=== PATIENT | female | born 1935 | race Caucasian/White ===

== ENCOUNTER 2023-07-19 18:36 | Inpatient (IN) | payer MEDICARE, SELFPAY ==
[2023-07-19 18:37] VITALS: BP 204/75; BP 217/87; PULSE 63; PULSE 68; RESP 14; RESP 16; TEMP 36.2; O2SAT 98; BMI 21.4
--- NOTE | 2023-07-19 19:23 | EDS_ITS ---
HPI History of Present Illness Chief Complaint: Hypertension Informant: patient and family Onset/Context/Timing Onset: Yesterday Context: Sudden Onset Timing: Intermittent and Lasts (Few seconds) Quality: Sharp Location: Chest Worsened by: Nothing Relieved by: Nothing Narrative Narrative: Patient presents with chest pain and elevated blood pressure that began last night. Patient states that her blood pressure has been constantly elevated since last night but her chest pain has been intermittent. Patient states it only last for a few seconds when it comes on. Patient describes it as sharp. Patient states that shoots across her chest. Patient states she took aspirin today with no improvement. Patient also took a blood pressure pill that was 6 years old tonight because her blood pressure was high. Patient had no improvement with this. Patient denies any shortness of breath. Patient does admit to some hematuria and urinary frequency. Family is concerned that the patient has a urinary tract infection. PFSH PFSH Medical History no medical history no medical history Home Medications NK 07/19/23 [History Last Taken Unknown] Allergy/AdvReac Type Severity Reaction Status Date / Time No Known Allergies Allergy Verified 07/19/23 18:40 Surgical History (Updated 07/19/23 @ 19:[address] Vu Ardon DO) Hx of appendectomy Hx of tubal ligation Social History Smoking Status: Never smoker ROS ROS ED Constitutional Constitutional ED: Denies chills or fever(s) Eyes Eyes: Denies blurry vision or change in vision ENT ENT ED: Denies rhinorrhea or sore throat Cardiovascular Cardiovascular: Reports chest pain; Denies palpitations Respiratory/Chest Respiratory/Chest: Denies cough or dyspnea Gastrointestinal Gastrointestinal: Denies nausea or vomiting Genitourinary Genitourinary ED: Reports hematuria and urinary frequency; Denies dysuria Musculoskeletal Musculoskeletal: Reports back pain; Denies neck pain Integumentary Denies abscess or rash Neurologic Neurologic: Denies headache(s) or weakness Allergic/Immunologic Allergic/Immunologic ED: Denies mouth swelling or urticaria EXAM Physical Exam Const Vital Signs: 07/19/23 18:37 07/19/23 18:37 07/19/23 18:37 Temperature 97.1 F L Temperature Source Temporal Pulse Rate 68 63 Respiratory Rate 16 14 Respiratory Effort Normal Respiratory Pattern Normal Blood Pressure 204/75 H 217/87 H Blood Pressure Mean 118 130 Pulse Ox 98 98 Oxygen Delivery Method Room Air Room Air 07/19/23 19:27 Temperature Temperature Source Pulse Rate Respiratory Rate Respiratory Effort Respiratory Pattern Blood Pressure 215/81 H Blood Pressure Mean 125 Pulse Ox Oxygen Delivery Method Positive well nourished and well developed General Appearance ED: well developed and NAD HEENT Reports moist mucous membranes Neck supple and no JVD Resp normal respiratory effort and clear to auscultation bilaterally Cardio regular rate and regular rhythm GI non-tender and non-distended Palpation: soft Extremity normal to inspection Neuro oriented x3, CN's II-XII intact bilaterally and no sensory deficits noted Sensorium / Orientation: alert Motor Exam: strength 5/5 throughout Psych mental status grossly normal MDM MDM MDM Narrative Medical decision making narrative: Differential diagnosis includes hypertensive urgency, cardiac dysrhythmia, cardiac ischemia, urinary tract infection, pyelonephritis, electrolyte abnormality, and ureteral calculus. EKG will be obtained to assess for cardiac dysrhythmia and cardiac ischemia. CT scan of the flank will be obtained to assess for ureteral calculus and pyelonephritis. Chest x-ray will be obtained to assess for pneumonia, pneumothorax, widened mediastinum, and congestive heart failure. CBC will be obtained to assess for leukocytosis and anemia. Basic metabolic profile will be obtained to assess for electrolyte abnormality and renal function. High-sensitivity troponin will be obtained to assess for cardiac ischemia. 2-hour repeat high-sensitivity troponin will be obtained to assess for ongoing cardiac ischemia. Urinalysis will be obtained to assess for urinary tract infection and hematuria. Lab Data Attestation: I reviewed the patient's lab results. Lab results narrative: CBC was reviewed. There is a mild leukocytosis of 11.2. The remainder is within normal limits. Basic metabolic profile was reviewed. Creatinine was sli ghtly elevated at 1.52. There are no prior results available for comparison. High-sensitivity troponin was reviewed and was 112. Urinalysis was reviewed. There is a leukocyte esterase of 500 with positive nitrites. There were 25-50 white blood cells seen. There is 1+ bacteria. Labs: Laboratory Results - last 24 hr 07/19/23 19:40 WBC 11.2 H RBC 4.25 Hgb 12.7 Hct 40.6 MCV 95.5 MCH 29.9 MCHC 31.3 L RDW Std Deviation 47.4 H RDW Coeff of [place] 13.4 Plt Count 235 MPV 8.9 Immature Gran % (Auto) 0.400 Neut % (Auto) 80.6 H Lymph % (Auto) 11.9 L [place] % (Auto) 5.9 Eos % (Auto) 0.6 Baso % (Auto) 0.6 Absolute Neuts (auto) 9.0 H Absolute Lymphs (auto) 1.33 Nucleated RBC % 0 Sodium 138 Potassium 4.2 Chloride 106 Carbon Dioxide 27.0 Anion Gap 5 BUN 15 Creatinine 1.52 H Estim Creat Clear Calc 18.38 Est GFR (MDRD) Af Amer 41 L Est GFR (MDRD) Non-Af 34 L BUN/Creatinine Ratio 9.9 L Glucose 138 H Calcium 9.6 Troponin I High Sens 112 H Radiography Diagnostic Testing: Clinical Impression(s) from Imaging Studies Abdomen/Pelvis CT 07/19/23 19:30 IMPRESSION: 1. Diffuse mesenteric edema and minimal free fluid within the pelvis of uncertain etiology. No bowel obstruction and no evidence of bowel perforation. 2. Nonspecific air-fluid levels within nondilated small bowel perhaps related to an enteritis. 3. Diffuse mottled appearance of the visualized spine, pelvis, and hips as well as multiple ribs with multifocal scattered lucent/lytic lesions suggesting diffuse metastatic disease or perhaps multiple myeloma. Recommend oncologic evaluation. 4. Apparent inferior endplate pathologic fracture of L5 with approximately 50% mid vertebral body height loss and no retropulsion of the posterior cortex or involvement of the posterior elements/pedicles. 5. Poorly visualized gallbladder, either partially decompressed or perhaps surgically absent with possible fluid extending from the gallbladder fossa along the inferior margin of the liver. Evaluation can be clarified with ultrasound and is limited without the use of intravenous contrast on the current exam. Electronically Signed: Shawn Wilson DO at 20:33 EST , Chest X-Ray 07/19/23 20:00 IMPRESSION: 1. Minimal bibasilar pulmonary opacities may be scarring or atelectasis rather than pneumonia. 2. Mild cardiomegaly. Electronically Signed: Shawn Wilson DO at 20:27 EST , CT scan of the abdomen and pelvis was obtained. There are nonspecific air-fluid levels with nondilated small bowel. There is diffuse mesenteric edema and minimal free fluid in the pelvis. There is no evidence of bowel obstruction or perforation. There is diffuse mottled appearance of the spine, pelvis, and hips as well as multiple ribs with scattered lucent/lytic lesions suggesting either metastatic disease or multiple myeloma. There is a compression fracture of L5 with approximately 50% loss of vertebral height. There is no retropulsion noted. It was interpreted by the radiologist and was also independently reviewed by myself. Portable 1 view chest x-ray was obtained. On my independent interpretation, lung reyes showed bibasilar atelectasis or scarring. There is mild cardiomegaly. Bony thorax is normal. There is no acute process noted. Radiologist also interpreted the x-ray and agrees. EKG Initial EKG: Attestation: I personally reviewed and interpreted this EKG as follows: Interpretation: Sinus Rhythm (65) and Non-Specific ST Changes Comments: EKG was obtained. On my independent interpretation, it showed a normal sinus rhythm with a rate of 65. RI interval, QRS interval, and QTc intervals were all normal. There is left axis deviation at -42. There are nonspecific ST-T wave changes. Prior EKG tracings: not available for review Prior: No Prior Management Discussion w/another healthcare provider: Hospitalist Additional Tests and Interventions Additional Tests or Interventions: Urine culture was ordered. Treatment and Re-Evaluation :: Patient was given a dose of labetalol and morphine. Patient's blood pressure improved to 166/60. Patient's heart rate did drop to 51. Patient was given a small bolus of fluids because of the elevated creatinine. Patient was given aspirin. Patient was started on Rocephin. Patient was advised of her findings. Patient was advised of the need for hospitalization. Patient and family are agreeable with this. Case was discussed with the hospitalist. She will admit the patient to PCU. Patient and family understood and were agreeable with plan. All questions were answered. Discharge Plan Dx/Rx/DC Orders Clinical Impression: Hypertensive urgency, Acute kidney injury, Urinary tract infection, Compression fracture of lumbar vertebra, Elevated troponin Disposition Disposition: Acute Care Hospital [facility]
[2023-07-19 19:27] VITALS: BP 215/81
--- NOTE | 2023-07-19 19:30 | CT_ITS ---
ACR Level 3 findings have been noted. An addendum which confirms receipt of the report will follow. EXAM: CT ABDOMEN AND PELVIS WITHOUT INTRAVENOUS CONTRAST CLINICAL INDICATION: Flank pain TECHNIQUE: Helically acquired images were obtained of the abdomen and pelvis without intravenous contrast. This CT exam was performed using one or more of the following dose reduction techniques: automated exposure control, adjustment of the mA and/or kV according to patient size, and/or use of iterative reconstruction technique. COMPARISON: Chest radiograph on the same date. FINDINGS: LOWER THORAX: Minimal bibasilar pulmonary opacities may be scarring or atelectasis. Coronary artery calcifications. Mild cardiomegaly. No significant pericardial effusion. ABDOMEN: LIVER: No significant abnormality. Homogeneous. GALLBLADDER AND BILE DUCTS: Poorly visualized gallbladder, either partially decompressed or perhaps surgically absent with possible fluid extending from the gallbladder fossa along the inferior margin of the liver. No intra- or extrahepatic biliary ductal dilation. PANCREAS: No significant abnormality. No focal cystic mass. SPLEEN: No significant abnormality. Normal size without focal cystic or solid mass. ADRENALS: No significant abnormality. No nodules. KIDNEYS AND URETERS: Left lower pole renal cyst for which no follow-up is indicated. No hydronephrosis. STOMACH AND BOWEL: Nonspecific air-fluid levels within nondilated small bowel perhaps related to an enteritis. PELVIS: APPENDIX: No evidence of acute appendicitis. BLADDER: No significant abnormality. REPRODUCTIVE: Normal as visualized. No mass. ABDOMEN and PELVIS: INTRAPERITONEAL SPACE: Diffuse mesenteric edema and minimal free fluid within the pelvis of uncertain etiology. No free air. BONES/JOINTS: Diffuse mottled appearance of the visualized spine, pelvis, and hips as well as multiple ribs with multifocal scattered lucent/lytic lesions suggesting diffuse metastatic disease or perhaps multiple myeloma. Apparent inferior endplate pathologic fracture of L5 with approximately 50% mid vertebral body height loss and no retropulsion of the posterior cortex or involvement of the posterior elements/pedicles. SOFT TISSUES: No significant abnormality. No discrete abdominal or pelvic wall hernia. VASCULATURE: Atherosclerosis of the aorta which is mildly tortuous. LYMPH NODES: No significant abnormality. No enlarged lymph nodes. CT/Abdomen/Pelvis without Cont IMPRESSION: 1. Diffuse mesenteric edema and minimal free fluid within the pelvis of uncertain etiology. No bowel obstruction and no evidence of bowel perforation. 2. Nonspecific air-fluid levels within nondilated small bowel perhaps related to an enteritis. 3. Diffuse mottled appearance of the visualized spine, pelvis, and hips as well as multiple ribs with multifocal scattered lucent/lytic lesions suggesting diffuse metastatic disease or perhaps multiple myeloma. Recommend oncologic evaluation. 4. Apparent inferior endplate pathologic fracture of L5 with approximately 50% mid vertebral body height loss and no retropulsion of the posterior cortex or involvement of the posterior elements/pedicles. 5. Poorly visualized gallbladder, either partially decompressed or perhaps surgically absent with possible fluid extending from the gallbladder fossa along the inferior margin of the liver. Evaluation can be clarified with ultrasound and is limited without the use of intravenous contrast on the current exam. Electronically Signed: Shawn Wilson DO at 20:33 EST ,
--- NOTE | 2023-07-19 19:30 | EKG12_ITS ---
Test Reason : CP Blood Pressure : / mmHG Vent. Rate : 065 BPM Atrial Rate : 065 BPM P-R Int : 164 ms QRS Dur : 088 ms QT Int : 412 ms P-R-T Axes : 080 -42 055 degrees QTc Int : 428 ms Normal sinus rhythm Left axis deviation Moderate voltage criteria for LVH, may be normal variant ( R in aVL , [place] product ) Nonspecific ST abnormality Abnormal ECG Confirmed by RENEE BADILLO, GALLO ([id number]), art editor ADI WADDELL ([id number]) on 07/24/2023 1:54:20 P M Referred By: YOUNG Confirmed By:VARSHA DURAN MD
[2023-07-19] MEDS: Morphine 4 MG/ML Syringe IV (19:44)
[2023-07-19] MEDS: Labetalol (Prefilled) 20 MG/4 ML IV (19:47)
[2023-07-19 19:49] LABS: Absolute Lymphocyte Count 1.33 X10^3/uL (0.83-4.51); Basophil# 0.07 X10^3/uL; Basophil% 0.6 % (0-1); Eosinophil# 0.07 X10^3/uL; Eosinophils% 0.6 % (0-5); Hematocrit 40.6 % (37-47); Hemoglobin 12.7 g/dL (12.0-15.0); Lymphocyte # 1.33 X10^3/ul (0.83-4.51); Lymphocyte % 11.9 % (19-41); Mean Corp Hgb Conc 31.3 g/dL (32-36); Mean Corpuscular Hgb 29.9 pg (27.0-32.0); Mean Corpuscular Volume 95.5 fL (81-99); Mean Platelet Vol. 8.9 fl (6.2-12.0); Monocyte# 0.66 X10^3/uL; Monocyte% 5.9 % (0-10); NRBC Flagged by Analyzer 0 % (0-5); Neutrophil % 80.6 % (47-70); Platelet Count 235 K/mm3 (150-450); RBC Distribution Width CV 13.4 % (11.6-14.6); RBC Distribution Width SD 47.4 fl (35.1-43.9); Red Blood Count 4.25 M/mm3 (4.2-5.4); White Blood Count 11.2 K/mm3 (4.4-11.0)
--- NOTE | 2023-07-19 20:00 | RAD_ITS ---
EXAM: XR CHEST, 1 VIEW CLINICAL INDICATION: Chest pain TECHNIQUE: Frontal view of the chest. COMPARISON: CT abdomen and pelvis on the same date. FINDINGS: LUNGS AND PLEURAL SPACES: Minimal bibasilar pulmonary opacities may be scarring or atelectasis rather than pneumonia. No pneumothorax. No effusion. HEART: Mild cardiomegaly. MEDIASTINUM: Central airways and mediastinal contour are unremarkable. BONES/JOINTS: Degenerative changes in the spine and shoulders. No acute fracture. SOFT TISSUES: No significant abnormality. VASCULATURE: Atherosclerosis and tortuosity of the aorta. RAD/Chest 1 View (Portable) IMPRESSION: 1. Minimal bibasilar pulmonary opacities may be scarring or atelectasis rather than pneumonia. 2. Mild cardiomegaly. Electronically Signed: Shawn Wilson DO at 20:27 EST ,
[2023-07-19 20:07] LABS: Anion Gap 5 (5-15); BUN 15 mg/dL (7-18); BUN/Creat Ratio 9.9 RATIO (10-20); Calcium,Total 9.6 mg/dL (8.5-10.1); Chloride 106 mmol/L (98-107); Creatinine, Serum 1.52 mg/dL (0.55-1.02); EST Glomerular Filtration Rate 34 mL/min (>60); Est Glom Filt Rate - Afr Amer 41 mL/min (>60); Estimated Creatinine Clearance 18.38 ml/min; Glucose 138 mg/dL (74-106); Potassium 4.2 mmol/L (3.5-5.1); Sodium Level 138 mmol/L (136-145); Troponin-I HS (w/2H Reflex) 112 pg/mL (3.0-54.0)
[2023-07-19 21:00] VITALS: BP 166/60; PULSE 51; RESP 16; O2SAT 96
[2023-07-19] MEDS: 0.9% Normal Saline (500mL Bag) 500 ML 1000 ML IV (21:25)
[2023-07-19 21:39] LABS: Mucous, Urine 0 SEEN /hpf (<or=2+)
[2023-07-19 21:40] LABS: Color, Urine Yellow (Yellow); Glucose, Dipstick Normal (Normal); Ketone-Dipstick Negative (Negative); Leukocyte Esterase-Dipstick 500 /ul (Negative); Nitrite-Dipstick Positive (Negative); Occult Blood-Urine 150 /ul (Negative); Protein-Dipstick 30 mg/dl (Negative); Specific Gravity, Urine 1.015 (1.002-1.030); Urine Bilirubin Dipstick Negative (Negative); Urine Clarity Sl. Cloudy (Clear); Urine Urobilinogen Normal (Normal)
[2023-07-19 21:43] LABS: Reflex Troponin-HS? (from REC) Y
[2023-07-19 21:48] LABS: Bacteria 1+ /hpf (None Seen); Squamous Epithelial Cells - UA 0-5 SEEN /hpf (5-10); White Blood Cells 25-50 SEEN /hpf (0-5)
[2023-07-19 21:49] LABS: Red Blood Cells-Urine 5-10 SEEN /hpf (0-5)
[2023-07-19 21:55] VITALS: BP 160/63; PULSE 53; RESP 16; O2SAT 96
--- NOTE | 2023-07-19 22:16 | HP.PCM.HOS_ITS ---
HPI - General General Date of Admission: 07/19/23 Date of Service: 07/19/23 Chief Complaint: Chest pain. HPI Narrative The patient is an 87 y/o F w/ PMHx: Hypertension who presents to the [facility] ED on 07/19/23 with history of onset chest discomfort noted to be intermittent starting the evening prior lasting a few seconds described as sharp shooting across her chest with elevated blood pressure as well with reported history of previously elevated blood pressure however she has not taken any medications for the last several years with self administration of aspirin secondary to discomfort without improvement with recent episodes of hematuria and increased urinary frequency prompting family eventually to bring her in for ED evaluation. Patient denies dyspnea. In the ED following administration of both morphine and labetalol patient did end up having bouts of nausea and emesis and upon physician evaluation she did have proceeding her nausea and emesis bout x 1 mild bradycardia with heart rate as low as 38 which improved into the 50s. She currently upon hospitalist evaluation in the ED rates her chest discomfort at 3 out of 10 in severity and notes that at its worst it was 8 out of 10 in severity. She denies any diaphoresis or nausea or emesis when this for started only after the medications as noted. Patient also reports transient right calf pain which was pretty significant the evening prior but is since resolved but is never happened previously. Workup in the ED included T97.1, heart rate 68 with most recent repeat 53, BP initially 204/75 with most recent repeat 160/63, respiratory rate 16, 98% on room air, CBC with WBC 11.2, hemoglobin 12.7, platelet 235 with left shift, BMP with BUN/creatinine 15/1.52, glucose 138, initial troponin 112 with repeat delta troponin pending upon requested evaluation of patient, urinalysis with specific gravity 1.015, cloudy appearing urine, occult blood 150, positive nitrite, leukocyte Estrace 500 with urine RBC 5-10 and urine to BCs 25-50 with 1+ urine bacteria, CT abdomen and pelvis with diffuse mesenteric edema and minimal free fluid within the pelvis of uncertain etiology with no evidence of any bowel obstruction or bowel perforation, nonspecific air-fluid levels within nondilated small bowel perhaps related to an enteritis, diffuse mottled appearance of the visualized spine, pelvis and hips as well as multiple ribs with multifocal scattered lucent lytic lesions suggestive of very diffuse metastatic disease or potentially multiple myeloma, apparent inferior endplate pathologic fracture of L5 with approximately 50% mid vertebral body height loss and no retropulsion of the posterior cortex involving the posterior elements/pedicles, poorly visualized gallbladder, either partially decompressed or possibly surgically absent with possible fluid extending from t he gallbladder fossa along the inferior margin the liver, chest x-ray with minimal bibasilar pulmonary opacities possibly scarring versus atelectasis, mild cardiomegaly, urine culture pending per ED, EKG with sinus rhythm with nonspecific ST changes with no acute evidence of ischemia with no comparison. in the ED patient administered aspirin 324 mg p.o. x 1, morphine 4 mg IV x 1, labetalol 20 mg IV x 1, Rocephin 1 g IV x 1. [facility] Medical History (Updated 07/19/23 @ 22:[address] Samra Samuel MD) HTN (hypertension) Medical History no medical history Home Medications NK 07/19/23 [History Last Taken Unknown] Allergy/AdvReac Type Severity Reaction Status Date / Time No Known Allergies Allergy Verified 07/19/23 18:40 Family History (Updated 07/19/23 @ 23:[address] Samra Samuel MD) Mother Cancer age 54, unclear cancer, metastatic. Father Myocardial infarction Hypertension Heart disease Son Phyllis Gehrig's disease Surgical History (Updated 07/19/23 @ 23:[address] Samra Samuel MD) History of tonsillectomy and adenoidectomy Hx of appendectomy Hx of tubal ligation Social History (Updated 07/19/23 @ 23:[address] Samra Samuel MD) household members: other details: Her daughter lives with her. Smoking Status: Never smoker alcohol intake: never substance use type: does not use ROS ROS Narrative Admission Review of Systems: CONSTITUTIONAL: No weight loss, fever, chills, + weakness or fatigue. HEENT: Eyes: No visual loss, blurred vision, double vision or yellow sclerae. Ears, Nose, Throat: No hearing loss, sneezing, congestion, runny nose or sore throat. SKIN: No rash or itching, lesions, wounds. CARDIOVASCULAR: + chest pain, chest pressure or chest discomfort. No palpitations, edema, orthopnea, syncopal events. RESPIRATORY: No shortness of breath, cough or sputum, wheezing, hemoptysis. GASTROINTESTINAL: + anorexia, nausea, vomiting. No diarrhea, abdominal pain, melena, BRBPR. GENITOURINARY: No dysuria, frequency, urgency or retention. NEUROLOGICAL: No headache, dizziness, syncope, paralysis, ataxia, numbness or tingling in the extremities, focal weakness, change in bowel or bladder control, seizure. MUSCULOSKELETAL: + muscle, back pain, joint pain or stiffness. HEMATOLOGIC: No anemia. + Easy bleeding or bruising. LYMPHATICS: No enlarged nodes. No history of splenectomy. PSYCHIATRIC: No history of depression or anxiety. ENDOCRINOLOGIC: No reports of sweating, cold or heat intolerance. No polyuria or polydipsia. ALLERGIES: No history of asthma, hives, eczema or rhinitis. Vital Signs Vital Signs Vital Signs: 07/19/23 18:37 07/19/23 18:37 07/19/23 18:37 Temperature 97.1 F L Temperature Source Temporal Pulse Rate 68 63 Respiratory Rate 16 14 Respiratory Effort Normal Respiratory Pattern Normal Blood Pressure 204/75 H 217/87 H Blood Pressure Mean 118 130 Pulse Ox 98 98 Oxygen Delivery Method Room Air Room Air 07/19/23 19:27 07/19/23 21:00 07/19/23 21:55 Temperature Temperature Source Pulse Rate 51 L 53 L Respiratory Rate 16 16 Respiratory Effort Respiratory Pattern Blood Pressure 215/81 H 166/60 H 160/63 H Blood Pressure Mean 125 95 95 Pulse Ox 96 96 Oxygen Delivery Method Room Air Weight Weight: 109 lb 9.6 oz Body Mass Index (BMI) 21.4 Physical Exam Narrative Physical Examination: General: Awake, alert, oriented x 3 and cooperative, seated upright in the ED bed, fatigued, recent bout of nausea and emesis but feels improved currently. Skin: Normal color, normal turgor, no icterus, no cyanosis except for very staged ecchymoses, occasional abrasion. HEENT: AT/NC, EOMI, PERRLA, dry MM, no carotid bruits or JVD noted. Lungs: Mildly diminished, greater bases, proper effort, no rales, ronchi or wheezing. Heart: Bradycardic with regular rhythm; no gallop, rub audible. Abdomen: Soft, NTTP, no rebound or guarding, no marked distention or tympanitic changes with palpation, hyperactive BS, no appreciated HSM. Extremities: No cyanosis, clubbing, or edema, see skin. Neurological: Patient awake, alert, oriented as noted, cognitive function baseline intact; pupils equally reactive to light and accommodation, cranial nerves II-XII grossly normal, moving all 4 extremities, no focal deficits, strength moderately to severely globally decreased secondary to acute complaints. Psychiatric: Affect appears flat, fatigued, no acute evidence of depressive or anxiety feelings. Results Lab / Micro Data 07/19/23 19:40 07/19/23 19:40 Labs: Laboratory Results - last 24 hr 07/19/23 19:40: WBC 11.2 H, RBC 4.25, Hgb 12.7, Hct 40.6, MCV 95.5, MCH 29.9, MCHC 31.3 L, RDW Std Deviation 47.4 H, RDW Coeff of Ruslan 13.4, Plt Count 235, MPV 8.9, Immature Gran % (Auto) 0.400, Neut % (Auto) 80.6 H, Lymph % (Auto) 11.9 L, Barren % (Auto) 5.9, Eos % (Auto) 0.6, Baso % (Auto) 0.6, Absolute Neuts (auto) 9.0 H, Absolute Lymphs (auto) 1.33, Nucleated RBC % 0, Sodium 138, Potassium 4.2, Chloride 106, Carbon Dioxide 27.0, Anion Gap 5, BUN 15, Creatinine 1.52 H, Estim Creat Clear Calc 18.38, Est GFR (MDRD) Af Amer 41 L, Est GFR (MDRD) Non-Af 34 L, BUN/Creatinine Ratio 9.9 L, Glucose 138 H, Calcium 9.6, Troponin I High Sens 112 H 07/19/23 21:29: Urine Color Yellow, Urine Clarity Sl. Cloudy, Urine pH 5.0, Ur Specific [place] 1.015, Urine Protein 30 H, Urine Glucose (UA) Normal, Urine Ketones Negative, Urine Occult Blood 150 H, Urine Nitrite Positive H, Urine Bilirubin Negative, Urine Urobilinogen Normal, Ur Leukocyte Esterase 500 H, Urine RBC 5-10 SEEN, Urine WBC 25-50 SEEN, Ur Squamous Epith Cells 0-5 SEEN, Urine Bacteria 1+, Urine Mucus 0 SEEN Imagaing Radiology Impression Abdomen/Pelvis CT 07/19/23 19:30 IMPRESSION: 1. Diffuse mesenteric edema and minimal free fluid within the pelvis of uncertain etiology. No bowel obstruction and no evidence of bowel perforation. 2. Nonspecific air-fluid levels within nondilated small bowel perhaps related to an enteritis. 3. Diffuse mottled appearance of the visualized spine, pelvis, and hips as well as multiple ribs with multifocal scattered lucent/lytic lesions suggesting diffuse metastatic disease or perhaps multiple myeloma. Recommend oncologic evaluation. 4. Apparent inferior endplate pathologic fracture of L5 with approximately 50% mid vertebral body height loss and no retropulsion of the posterior cortex or involvement of the posterior elements/pedicles. 5. Poorly visualized gallbladder, either partially decompressed or perhaps surgically absent with possible fluid extending from the gallbladder fossa along the inferior margin of the liver. Evaluation can be clarified with ultrasound and is limited without the use of intravenous contrast on the current exam. Electronically Signed: Shawn CradosoEric Wilson DO at 20:33 EST , ADDENDUM: 07/19/232103 IMPRESSION: 1. Diffuse mesenteric edema and minimal free fluid within the pelvis of uncertain etiology. No bowel obstruction and no evidence of bowel perforation. 2. Nonspecific air-fluid levels within nondilated small bowel perhaps related to an enteritis. 3. Diffuse mottled appearance of the visualized spine, pelvis, and hips as well as multiple ribs with multifocal scattered lucent/lytic lesions suggesting diffuse metastatic disease or perhaps multiple myeloma. Recommend oncologic evaluation. 4. Apparent inferior endplate pathologic fracture of L5 with approximately 50% mid vertebral body height loss and no retropulsion of the posterior cortex or involvement of the posterior elements/pedicles. 5. Poorly visualized gallbladder, either partially decompressed or perhaps surgically absent with possible fluid extending from the gallbladder fossa along the inferior margin of the liver. Evaluation can be clarified with ultrasound and is limited without the use of intravenous contrast on the current exam. N.B. : Nancy Ngo OT, confirmed on 07/19/2023 20:58:03 (ET) that the healthcare facility has received the radiology report. Electronically Signed: Shawn CardosoEric Wilson DO at 20:33 EST , Chest X-Ray 07/19/23 20:00 IMPRESSION: 1. Minimal bibasilar pulmonary opacities may be scarring or atelectasis rather than pneumonia. 2. Mild cardiomegaly. Electronically Signed: Shawn Wilson, DO at 20:27 EST , Assessment & Plan Assessment/Plan (1) Hypertensive urgency: PLAN: Plan The patient is an 87 y/o F w/ PMHx: Hypertension who presents to the [facility] ED on 07/19/23 with history of onset chest discomfort noted to be intermittent start ing the evening prior lasting a few seconds described as sharp shooting across her chest with elevated blood pressure as well with reported history of previously elevated blood pressure however she has not taken any medications for the last several years with self administration of aspirin secondary to discomfort without improvement with recent episodes of hematuria and increased urinary frequency prompting family eventually to bring her in for ED evaluation. #1. Chest Pain w/ indeterminate elevated cardiac enzyme, possible related to #1, possibly evolving: EKG in ED w/ sinus rhythm with nonspecific ST changes with no acute comparison, CXR w/ minimal bibasilar pulmonary opacities consiste nt with more scarring versus atelectasis. Trop elevated, 112 with repeat delta pending upon requested evaluation of. Will admit to PCU, maintain on a monitored bed, continue serial cardiac enzymes and EKGs. Obtain magnesium level upon admission. Will place on chemoprophylactic heparin; however, if enzyme rises would transition to heparin drip. Maintain on ASA. Given response will avoid further BB therapy at this time. AM FLP. ECHO requested. Cardiology consulted. If enzymes remain stable or trend down would request stress testing but would defer to Cardiology discretion. Maintain NPO after midnight. #2. Hypertensive urgency: Presentation blood pressure significantly elevated in the systolic 200 range with elevated blood pressures per family starting the evening prior with history of previous hypertension not on medications for several years, BP improved in the ED with simply labetalol, unclear what her exact baseline has been recently and if this is purely elevated in this acute si tuation, will continue as needed IV hydralazine and pending trending would add oral regimen. #3. Acute Complicated Urinary Tract Infection: UA upon ED evaluation remarkable, pending UCx, continue IVFs, monitor I/Os, continue IV Rocephin w/ transition as able pending sensitivities and speciation. #4. Diffuse mesenteric edema, minimal free fluid with nonspecific air-fluid levels within nondilated small bowel, unclear etiology: To be cautious given atypical presentation with onset nausea and emesis in the ED although again suspected medication potentially related but not 100% certain, we will maintain n.p.o. status on IV PPI with KUB in a.m. to be cautious. #5. Multifocal scattered lucent lytic lesions with apparent inferior endplate pathologic fracture L5 both concerning for diffuse metastatic disease versus more suspected multiple myeloma: Patient with significant findings on CT i maging, will request oncology consultation per discussion with patient and her family, maintain on fall precaution, PT/OT/case management consulted for discharge planning. #6. Suspected Chronic Kidney Disease Stage III unclear subtype but no comparison, possible RADHA or insufficiency but unable to determine: Admission BUN/Cr 15/1.52, GFR 34, unclear baseline, repeat CMP in AM. #7. Hyperglycemia, mild: Admission glucose 138, hemoglobin A1c requested to be cautious. #8. Transient right lower extremity pain, resolved: Low suspicion but be cautious right lower extremity duplex ultrasound requested #9. DVT prophylaxis: Heparin. #10. CODE status: Patient HCPOA and LW are not in place, daughter present however would be her decision maker she notes if needed. Discussed CODE status at length including difference between FULL code, DNR-CCA and DNR-CC status. Following discussions about the differences in these status, requested Full Code status. Advanced Care Planning Face to Face Time: 16 minutes. Charges/Coding Visit Charges Inpatient E&M: 56906 Init Hosp L3 Procedures Hospitalists Procedures: 24127 Advncd Care Plan 30 Min
[2023-07-19 22:28] LABS: Troponin-I HS 76 pg/mL (3.0-54.0)
[2023-07-19] MEDS: Aspirin 81 MG TAB.CHEW 324 MG PO (22:33)
[2023-07-19] MEDS: Ondansetron 4 MG/2 ML Vial IV (22:34)
[2023-07-19] MEDS: Ceftriaxone 1 GM/50 ML BAG IV (22:34)
--- NOTE | 2023-07-19 23:15 | ECHOD_ITS ---
Reason For Study: CAD/ASHD Procedure This was a 2D Doppler, Color Flow transthoracic echocardiogram. Myocardial strain analysis was performed in this exam to aid in the assessment of cardiac function. Exam performed in department. Left Ventricle Normal LV size. The global longitudinal strain = -18.3 % (normal). The estimated ejection fraction is 55-60 %. Unable to assess diastolic dysfunction. No regional wall motion abnormalities noted. Right Ventricle Normal RV size. Normal systolic function. Atria The left atrium is moderately enlarged. Normal right atrium. No doppler evidence for ASD. Mitral Valve There is severe mitral annular calcification. There is no mitral valve stenosis. Mild (1+) mitral valve insufficiency. Tricuspid Valve There is no tricuspid stenosis. Mild tricuspid valve insufficiency. Pulmonary artery systolic pressure is 50 mmHg. Aortic Valve Trisinus/trileaflet aortic valve. Mild diffuse aortic valve thickening. Mild aortic stenosis. Mild (1+) aortic valve insufficiency. Pulmonic Valve There is no pulmonic valvular stenosis. Mild (1+) pulmonic valve insufficiency. Great Vessels Normal aortic root. Pericardium/Pleural No pericardial effusion. MMode/2D Measurements & Calculations LVIDd: 5.0 cm IVSd: 0.78 cm LVOT diam: 1.9 cm LVIDs: 3.4 cm LVPWd: 0.75 cm LVOT area: 2.9 cm2 RVDd: 2.5 cm FS: 33.5 % Ao root diam: 2.8 cm LAV(MOD-bp): 97.1 ml EDV(MOD-sp4): 94.2 ml LAV(MOD-bp) Indexed: 67.9 ml/m2 ESV(MOD-sp4): 37.8 ml LAV(MOD-sp2): 78.4 ml EF(MOD-sp4): 59.9 % LAV(MOD-sp4): 100.7 ml EDV(MOD-sp2): 87.0 ml SV(MOD-sp4): 56.4 ml SV(MOD-sp2): 65.2 ml ESV(MOD-sp2): 21.8 ml EF(MOD-sp2): 74.9 % LA A4 area: 27.0 cm2 LA dimension(2D): 4.0 cm RA A4 area: 13.1 cm2 TAPSE: 2.1 cm Time Measurements MV dec time: 0.16 sec Doppler Measurements & Calculations MV E max nikhil: 119.2 cm/sec Lat Peak E' Nikhil: 10.2 cm/sec Med Peak E' Nikhil: 7.5 cm/sec MV A max nikhil: 62.6 cm/sec E/E' lat: 11.7 E/E' med: 15.8 MV E/A: 1.9 MV V2 max: 127.5 cm/sec MV P1/2t max nikhil: 131.4 cm/sec Ao V2 max: 232.0 cm/sec MV max P.5 mmHg MV P1/2t: 55.3 msec Ao max P.6 mmHg MV V2 mean: 61.1 cm/sec MV dec slope: 695.9 cm/sec2 Ao V2 mean: 144.6 cm/sec MV mean P.8 mmHg MVA(P1/2t): 4.0 cm2 Ao mean P.1 mmHg MV V2 VTI: 48.1 cm Ao V2 VTI: 55.6 cm MVA(VTI): 2.5 cm2 AV (velocity ratio): 0.75 NIKA(I,D): 2.1 cm2 NIKA(V,D): 2.2 cm2 AI max nikhil: 359.0 cm/sec LV V1 max: 176.2 cm/sec MR max nikhil: 628.5 cm/sec AI max P.6 mmHg LV V1 max P.4 mmHg MR max P.0 mmHg LV V1 mean P.5 mmHg MR mean nikhil: 507.7 cm/sec AI dec slope: 137.3 cm/sec2 LV V1 mean: 107.2 cm/sec MR mean P.7 mmHg AI P1/2t: 766.0 msec LV V1 VTI: 41.7 cm MR VTI: 233.9 cm SV(LVOT): 118.9 ml PA V2 max: 108.0 cm/sec TR max nikhil: 325.9 cm/sec PA V2 mean: 76.2 cm/sec TR max P.5 mmHg ECHO/Echo Complete Interpretation Summary The estimated ejection fraction is 55-60 %. Unable to assess diastolic dysfunction. The left atrium is moderately enlarged. Mild (1+) mitral valve insufficiency. Mild aortic stenosis. Mild (1+) aortic valve insufficiency. Ordering Physician: Samra Samuel Referring Physician: SUNIL PCP Performed By: Elsie Chavira, SOHAN, RVT
--- NOTE | 2023-07-19 23:15 | EKG12_ITS ---
Test Reason : CP ADMIT Blood Pressure : / mmHG Vent. Rate : 045 BPM Atrial Rate : 045 BPM P-R Int : 186 ms QRS Dur : 098 ms QT Int : 512 ms P-R-T Axes : 078 -38 009 degrees QTc Int : 442 ms Sinus bradycardia Left axis deviation Increased R/S ratio in V1, consider early transition or posterior infarct Abnormal ECG When compared with ECG of 19-JUL-2023 18:48, MANUAL COMPARISON REQUIRED, DATA IS UNCONFIRMED Confirmed by RENEE BADILLO, GALLO ([id number]), fashion editor ADI WADDELL ([id number]) on 07/24/2023 12:49:01 PM Referred By: Confirmed By:VARSHA DURAN MD
--- NOTE | 2023-07-19 23:25 | VDLE_ITS ---
Reason For Study: RLE Pain RIGHT LEFT GSV is PARTIALLY COMPRESSIBLE with bright, CFV is compressible, spontaneous, competent, web-like intraluminal echoes. Finding is and demonstrates pulsatile venous flow. consistent with chronic SVT. CFV is compressible, spontaneous, competent and demonstrates pulsatile venous flow. FV is compressible, spontaneous, competent and demonstrates pulsatile venous flow. POP V is compressible, spontaneous, competent and demonstrates pulsatile venous flow. T/P Trunk is compressible. PTV is compressible. RT PerV is compressible. Procedure This is a venous duplex using B-mode, color flow and spectral Doppler. Exam performed in department. The exam was diagnostic. A preliminary report was called and/or faxed to PCU company marker. 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 Deep veins of the right lower extremity are patent and compressible segmentally . There is no evidence of right lower extremity deep vein thrombosis. Ordering Physician: Samra Samuel Referring Physician: N/A Performed By: Tom Sanabria RVT
[2023-07-19 23:52] VITALS: O2SAT 97
[2023-07-20] VITALS (8 sets, daily range): BP systolic 116–194; BP diastolic 52–67; PULSE 47–61; RESP 16; TEMP 36.6–37.1; O2SAT 96–98; BMI 20.9
[2023-07-20] MEDS: 0.9% Normal Saline (1000mL) 1,000 ML 100 ML IV ×2 (00:44→16:05)
[2023-07-20 02:40] LABS: Absolute Lymphocyte Count 0.82 X10^3/uL (0.83-4.51); Absolute Neutrophil Count 8.3 X10^3/uL (2.0-7.7); Basophil# 0.02 X10^3/uL; Basophil% 0.2 % (0-1); Hematocrit 36.4 % (37-47); Hemoglobin 11.2 g/dL (12.0-15.0); Lymphocyte # 0.82 X10^3/ul (0.83-4.51); Lymphocyte % 8.7 % (19-41); Mean Corp Hgb Conc 30.8 g/dL (32-36); Mean Corpuscular Hgb 30.4 pg (27.0-32.0); Mean Corpuscular Volume 98.6 fL (81-99); Monocyte# 0.22 X10^3/uL; Monocyte% 2.3 % (0-10); NRBC Flagged by Analyzer 0 % (0-5); Neutrophil # 8.29 X10^3/uL (2.7-7.7); Neutrophil % 88.5 % (47-70); Platelet Count 200 K/mm3 (150-450); RBC Distribution Width CV 13.6 % (11.6-14.6); Red Blood Count 3.69 M/mm3 (4.2-5.4); White Blood Count 9.4 K/mm3 (4.4-11.0)
[2023-07-20 02:58] LABS: ALB/GLOB Ratio 0.9 RATIO (0.9-2.4); AST(SGOT) 29 U/L (15-37); Alanine Aminotransfer ALT/SGPT 12 U/L (13-56); Albumin, Serum 3.1 g/dL (3.2-5.0); Alkaline Phosphatase 123 U/L (45-117); Anion Gap 8 (5-15); BUN 17 mg/dL (7-18); BUN/Creat Ratio 10.6 RATIO (10-20); Calcium,Total 8.6 mg/dL (8.5-10.1); Chloride 106 mmol/L (98-107); Cholesterol 158 mg/dL (200); EST Glomerular Filtration Rate 32 mL/min (>60); Est Glom Filt Rate - Afr Amer 39 mL/min (>60); Estimated Creatinine Clearance 17.46 ml/min; Globulin 3.3 g/dL (2.2-4.2); Glucose 203 mg/dL (74-106); High Density Lipoprotein 89 mg/dL; Potassium 4.5 mmol/L (3.5-5.1); Protein, Total 6.4 g/dL (6.4-8.2); Sodium Level 142 mmol/L (136-145); Triglycerides 74 mg/dL; Very Low Density Lipoprotein 15 mg/dL (5-40)
[2023-07-20 02:59] LABS: Troponin-I HS 83 pg/mL (3.0-54.0)
--- NOTE | 2023-07-20 05:20 | RAD_ITS ---
STUDY: X-RAY - ABDOMEN/PELVIS REASON FOR EXAM: Female, 87 [address]/? Enteritis TECHNIQUE: Single AP view of the abdomen / pelvis. COMPARISON: CT abdomen and pelvis July 19. FINDINGS: Normal visualized lung bases. Due to body habitus there is a somewhat unusual appearance of the appearance of the soft tissues of the abdomen. There is a hyperlucent appearance of the right upper quadrant line for summation artifact is also demonstrated on the prior creative writing teacher film for the CT. air. Liver spleen and kidneys are mostly obscured. Normal soft tissue structures. There is an inhomogeneous appearance of the bony structures highly suspicious for pattern of metastatic disease. RAD/Abdomen Single View (Portable) IMPRESSION: Unusual bowel gas pattern possibly due to patient''s positioning, Could consider a follow-up CT scan of the abdomen and pelvis for further information and follow-up to the distended bowel loops seen on the prior study. And inhomogeneous bony structures with multifocal erosive lesion suspicious for metastatic disease. Electronically Signed: Dyana Enriquez MD at 7:00 EST ,
--- NOTE | 2023-07-20 10:50 | CASEMGMT ---
RN CM Face to Face with patient for initial transition planning/care coordination assessment. RN CM introduced self and role at [facility]. Patient lying in bed, alert and oriented, daughter at bedside. Patient willing to participate in assessment and is able to answer all questions appropriately. Care providers, pharmacy, and demographics verified. Patient wishes to discharge home, denies need for home health at this time. Patient states she has no further needs or concerns at this time. CM to follow for discharge planning needs that may arise. PCP: no PCP, list provided to patient Specialists: none Preferred Pharmacy: [facility]; [facility] retail at discharge Insurance: [employer] Prescription Benefit: yes Living Will/HPOA: none LNOK: daughter, son Living Arrangements: Patient lives with daugther in a 1.5 story home with bed and bath on first floor. Patient states she is independent at home. Transportation: self, daughter DME/HHC: Patient has cane at home. No previous HHC or SNF Disposition Plan: Patient to discharge home with family support and follow-up plans in place. Jacquelin KINNEY, RN, CM
[2023-07-20] MEDS: Acetaminophen 325 MG Tablet 650 MG PO (11:31)
[2023-07-20] MEDS: hydrALAZINE 20 MG/ML Vial 10 MG IV (11:32)
[2023-07-20 11:35] LABS: Hemoglobin A1c 5.8 % (3.8-5.6)
[2023-07-20] MEDS: Pantoprazole Sodium 40 MG in 0.9% Normal Saline (100mL MB+) 100 ML 330 MG IV ×2 (11:40→21:04)
--- NOTE | 2023-07-20 13:04 | ONC.CONSULT ---
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 Plan: 1. Surgical consultation for biopsy for pathologic confirmation and determination of ER status. For ER positive palliative hormonal therapy which is tolerable for an elderly frail person is advised. Patient will be followed up in 7 to 10 days from the biopsy in the outpatient to review pathology and prescribed treatment. Patient was hesitant about doing anything for her cancer in my age but when discussed simple hormonal therapy she became more receptive to therapy. Patient was seen with her daughter. (2) Metastasis to bone: Status: Acute Code(s): C79.51 - Secondary malignant neoplasm of bone Plan: Will evaluate for bone supportive therapy following discharge and after optimization of kidney function. HPI Consult Data Date of Service:: 07/20/23 PCP / Referring Provider: No Primary Care Phys Attending: Dr. Radha Crouch MD Chief Complaint Chief Complaint: Chest pain History of Present Illness History of Present Illness: 87-year-old female who presented to [facility] emergency room with chest an flank pain. A CT scan of the abdomen and pelvis showed bone abnormalities highly suspicious for metastatic disease to bones. When directly questions, patient admitted that she has had enlarging painless masses in both breasts for at least 3 years for which he did not seek any medical attention. She has not seen a doctor for at least 20 years. Family history notable for 2 sisters with breast cancers. Advanced Directives Power of Piece Cutter: No Living Will: No ON LICENSE OF [facility] Medical History (Updated 07/20/23 @ 13:[address] 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 Samra Samuel MD) Mother Cancer age 54, unclear cancer, metastatic. Father Myocardial infarction Hypertension Heart disease Son Phyllis Henderson's disease Surgical History (Updated 07/19/23 @ 23:[address] Samra Samuel MD) History of tonsillectomy and adenoidectomy Hx of appendectomy Hx of tubal ligation Social History (Updated 07/19/23 @ 23:[address] Samra Samuel MD) household members: other details: Her daughter lives with her. Smoking Status: Never smoker alcohol intake: never substance use type: does not use ROS Constitutional Constitutional: Reports fatigue and weight loss ENT HEENT: Denies dysphagia Cardiovascular Cardiovascular: Reports chest pain; Denies edema Respiratory/Chest Respiratory/Chest: Reports breast mass; Denies dyspnea or breast pain Gastrointestinal Gastrointestinal: Denies abdominal pain, change in bowel habits, hematochezia or melena Genitourinary Genitourinary: Denies hematuria Musculoskeletal Musculoskeletal: Reports back pain and extremity pain Integumentary Integumentary: Denies new lesions Neurologic Neurologic: Denies abnormal speech, focal weakness or headache(s) Physical Exam Narrative ECOG 1 Const alert and no apparent distress General Appearance: ill appearing Positive for chronically and frail Orientation / Consciousness: oriented to person and oriented to place HEENT normocephalic Teeth and Gingiva: edentulous Eyes no scleral icterus Neck no lymphadenopathy Lymph Lymphatic: lymphadenopathy Lymphadenopathy Laterality: bilateral Lymphatic Narrative: Bilateral axillary adenopathy Chest Chest Narrative: Both breasts replaced with solid fixed masses consistent with a malignant process Resp clear to auscultation bilaterally Cardio regular rate and regular rhythm GI soft to palpation and non-tender Extremity no clubbing, cyanosis or edema Skin no wounds Neuro CN's II-XII intact bilaterally and moves all extremities Psych mental status grossly normal, cooperative and speech normal Vital Signs Temperature 97.8 F 07/20/23 11:57 Temperature Source Temporal 07/20/23 11:57 Pulse Rate 56 L 07/20/23 11:57 Pulse Strength Normal (2+) 07/20/23 11:00 Respiratory Rate 16 07/20/23 11:57 Respiratory Effort Normal, Non-Labored 07/20/23 11:00 Respiratory Depth Normal 07/20/23 11:00 Respiratory Pattern Normal 07/20/23 11:00 Blood Pressure 194/67 H 07/20/23 11:57 Blood Pressure Mean 109 07/20/23 11:57 Blood Pressure Source Monitor 07/20/23 11:57 Blood Pressure Position Semi-Fowlers 07/20/23 11:57 Blood Pressure Location Right Arm 07/20/23 11:57 Pulse Ox 97 07/20/23 11:57 Oxygen Delivery Method Room Air 07/20/23 11:57 Laboratory Results - last 24 hr 07/19/23 19:40: WBC 11.2 H, RBC 4.25, Hgb 12.7, Hct 40.6, MCV 95.5, MCH 29.9, MCHC 31.3 L, RDW Std Deviation 47.4 H, RDW Coeff of [place] 13.4, Plt Count 235, MPV 8.9, Immature Gran % (Auto) 0.400, Neut % (Auto) 80.6 H, Lymph % (Auto) 11.9 L, [place] % (Auto) 5.9, Eos % (Auto) 0.6, Baso % (Auto) 0.6, Absolute Neuts (auto) 9.0 H, Absolute Lymphs (auto) 1.33, Nucleated RBC % 0, Sodium 138, Potassium 4.2, Chloride 106, Carbon Dioxide 27.0, Anion Gap 5, BUN 15, Creatinine 1.52 H, Estim Creat Clear Calc 18.38, Est GFR (MDRD) Af Amer 41 L, Est GFR (MDRD) Non-Af 34 L, BUN/Creatinine Ratio 9.9 L, Glucose 138 H, Calcium 9.6, Troponin I High Sens 112 H 07/19/23 21:29: Urine Color Yellow, Urine Clarity Sl. Cloudy, Urine pH 5.0, Ur Specific [place] 1.015, Urine Protein 30 H, Urine Glucose (UA) Normal, Urine Ketones Negative, Urine Occult Blood 150 H, Urine Nitrite Positive H, Urine Bilirubin Negative, Urine Urobilinogen Normal, Ur Leukocyte Esterase 500 H, Urine RBC 5-10 SEEN, Urine WBC 25-50 SEEN, Ur Squamous Epith Cells 0-5 SEEN, Urine Bacteria 1+, Urine Mucus 0 SEEN 07/19/23 21:50: Magnesium 2.0, Troponin I High Sens 76 H 07/20/23 02:21: WBC 9.4, RBC 3.69 L, Hgb 11.2 L, Hct 36.4 L, MCV 98.6, MCH 30.4, MCHC 30.8 L, RDW Std Deviation 49.0 H, RDW Coeff of [place] 13.6, Plt Count 200, MPV 9.0, Immature Gran % (Auto) 0.300, Neut % (Auto) 88.5 H, Lymph % (Auto) 8.7 L, [place] % (Auto) 2.3, Eos % (Auto) 0.0, Baso % (Auto) 0.2, Absolute Neuts (auto) 8.3 H, Absolute Lymphs (auto) 0.82 L, Nucleated RBC % 0, Sodium 142, Potassium 4.5, Chloride 106, Carbon Dioxide 28.0, Anion Gap 8, BUN 17, Creatinine 1.60 H, Estim Creat Clear Calc 17.46, Est GFR (MDRD) Af Amer 39 L, Est GFR (MDRD) Non-Af 32 L, BUN/Creatinine Ratio 10.6, Glucose 203 H, Hemoglobin A1c 5.8 H, Calcium 8.6, Total Bilirubin 0.50, AST 29, ALT 12 L, Alkaline Phosphatase 123 H, Troponin I High Sens 83 H, Total Protein 6.4, Total Protein (PEP) Cancelled, Albumin 3.1 L, Globulin 3.3 07/20/23 02:21: Globulin Cancelled, Albumin/Globulin Ratio 0.9, Triglycerides 74, Cholesterol 158, LDL Cholesterol 54, VLDL Cholesterol 15, HDL Cholesterol 89, IgG Cancelled, IgA Cancelled, IgM Cancelled, Immunofixation Screen Cancelled, Albumin (MICHEL) Cancelled, Albumin/Globulin (MICHEL) Cancelled, [id number] MICHEL Cancelled, [id number]-[id number] MICHEL Cancelled, Beta-Globulins (MICHEL) Cancelled, Gamma Globulins (MICHEL) Cancelled, MICHEL M-Jay Cancelled, MICHEL Comments Cancelled, MICHEL Interpretation Cancelled, Free [place] LC, Quant Cancelled, Free Lambda LC, Quant Cancelled, Free [place]/Lambda Ratio Cancelled Diagnostic Data I personally reviewed patient's chest x-ray and CT images. Abdomen/Pelvis CT 07/19/23 19:30 IMPRESSION: 1. Diffuse mesenteric edema and minimal free fluid within the pelvis of uncertain etiology. No bowel obstruction and no evidence of bowel perforation. 2. Nonspecific air-fluid levels within nondilated small bowel perhaps related to an enteritis. 3. Diffuse mottled appearance of the visualized spine, pelvis, and hips as well as multiple ribs with multifocal scattered lucent/lytic lesions suggesting diffuse metastatic disease or perhaps multiple myeloma. Recommend oncologic evaluation. 4. Apparent inferior endplate pathologic fracture of L5 with approximately 50% mid vertebral body height loss and no retropulsion of the posterior cortex or involvement of the posterior elements/pedicles. 5. Poorly visualized gallbladder, either partially decompressed or perhaps surgically absent with possible fluid extending from the gallbladder fossa along the inferior margin of the liver. Evaluation can be clarified with ultrasound and is limited without the use of intravenous contrast on the current exam. Electronically Signed: Shawn VEric Wilson DO at 20:33 EST , ADDENDUM: 07/19/232103 IMPRESSION: 1. Diffuse mesenteric edema and minimal free fluid within the pelvis of uncertain etiology. No bowel obstruction and no evidence of bowel perforation. 2. Nonspecific air-fluid levels within nondilated small bowel perhaps related to an enteritis. 3. Diffuse mottled appearance of the visualized spine, pelvis, and hips as well as multiple ribs with multifocal scattered lucent/lytic lesions suggesting diffuse metastatic disease or perhaps multiple myeloma. Recommend oncologic evaluation. 4. Apparent inferior endplate pathologic fracture of L5 with approximately 50% mid vertebral body height loss and no retropulsion of the posterior cortex or involvement of the posterior elements/pedicles. 5. Poorly visualized gallbladder, either partially decompressed or perhaps surgically absent with possible fluid extending from the gallbladder fossa along the inferior margin of the liver. Evaluation can be clarified with ultrasound and is limited without the use of intravenous contrast on the current exam. N.B. : Nancy Ngo OT, confirmed on 07/19/2023 20:58:03 (ET) that the healthcare facility has received the radiology report. Electronically Signed: Shawn Heraclio Wilson DO at 20:33 EST , Chest X-Ray 07/19/23 20:00 IMPRESSION: 1. Minimal bibasilar pulmonary opacities may be scarring or atelectasis rather than pneumonia. 2. Mild cardiomegaly. 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 Deep veins of the right lower extremity are patent and compressible segmentally. There is no evidence of right lower extremity deep vein thrombosis. Ordering Physician: Samra Samuel Referring Physician: N/A Performed By: Tom Sanabria RVT
--- NOTE | 2023-07-20 14:29 | PCM.CONS.C ---
Assessment & Plan Assessment/Plan (1) Elevated troponin: PLAN: Stress test was negative for ischemia. EF is preserved. Appears to be related to her uncontrolled hypertension. Recommend amlodipine 5 mg p.o. daily. Titrate to bring down systolic pressure to around 170 mmHg. 2D echo reviewed. Please see echo report for details. No further cardiac workup required at this time. Will sign off. HPI Consult Data Date of Consult: 07/20/23 HPI Narrative HPI Narrative: JASPER ESPARZA, is a 87 F who presents with elevated blood pressure. She had some chest discomfort when her systolic blood pressure was around 220. Her blood pressure improved and chest pain has resolved. Troponin was borderline elevated. [facility] Medical History (Updated 07/20/23 @ 13:[address] 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 Samra Samuel MD) Mother Cancer age 54, unclear cancer, metastatic. Father Myocardial infarction Hypertension Heart disease Son Phyllis Gehrig's disease Surgical History (Updated 07/19/23 @ 23:[address] Samra Samuel MD) History of tonsillectomy and adenoidectomy Hx of appendectomy Hx of tubal ligation Social History (Updated 07/19/23 @ 23:[address] Samra Samuel MD) household members: other details: Her daughter lives with her. Smoking Status: Never smoker alcohol intake: never substance use type: does not use Physical Exam Const alert and oriented x3 HEENT normocephalic Eyes no scleral icterus Resp normal respiratory effort Cardio regular rate Cardio Narrative: Ejection systolic murmur is heard Risk Stratification Risk Stratification Applicable: No Charges/Coding Visit Charges Inpatient E&M: 81321 Init Hosp L1 Objective Data Vital Signs: Vital Signs Temp Pulse Resp BP Pulse Ox O2 Del Method 97.8 F 56 L 16 135/52 H 97 Room Air 07/20/23 11:57 07/20/23 11:57 07/20/23 11:57 07/20/23 12:30 07/20/23 11:57 07/20/23 11:57 Oxygen Delivery Method Room Air Weight: 107 lb 5.842 oz Body Mass Index (BMI) 20.9 Intake & Output: Intake and Output for Last 24 Hours 07/18/23 07/19/23 07/20/23 23:59 23:59 23:59 Intake Total 550 / 550 1160 / 1160 Balance 550 / 550 1160 / 1160 Lab / Micro Data 07/20/23 02:21 07/20/23 02:21 Labs: Laboratory Results - last 24 hr 07/19/23 19:40: WBC 11.2 H, RBC 4.25, Hgb 12.7, Hct 40.6, MCV 95.5, MCH 29.9, MCHC 31.3 L, RDW Std Deviation 47.4 H, RDW Coeff of [place]lan 13.4, Plt Count 235, MPV 8.9, Immature Gran % (Auto) 0.400, Neut % (Auto) 80.6 H, Lymph % (Auto) 11.9 L, [place] % (Auto) 5.9, Eos % (Auto) 0.6, Baso % (Auto) 0.6, Absolute Neuts (auto) 9.0 H, Absolute Lymphs (auto) 1.33, Nucleated RBC % 0, Sodium 138, Potassium 4.2, Chloride 106, Carbon Dioxide 27.0, Anion Gap 5, BUN 15, Creatinine 1.52 H, Estim Creat Clear Calc 18.38, Est GFR (MDRD) Af Amer 41 L, Est GFR (MDRD) Non-Af 34 L, BUN/Creatinine Ratio 9.9 L, Glucose 138 H, Calcium 9.6, Troponin I High Sens 112 H 07/19/23 21:29: Urine Color Yellow, Urine Clarity Sl. Cloudy, Urine pH 5.0, Ur Specific [place] 1.015, Urine Protein 30 H, Urine Glucose (UA) Normal, Urine Ketones Negative, Urine Occult Blood 150 H, Urine Nitrite Positive H, Urine Bilirubin Negative, Urine Urobilinogen Normal, Ur Leukocyte Esterase 500 H, Urine RBC 5-10 SEEN, Urine WBC 25-50 SEEN, Ur Squamous Epith Cells 0-5 SEEN, Urine Bacteria 1+, Urine Mucus 0 SEEN 07/19/23 21:50: Magnesium 2.0, Troponin I High Sens 76 H 07/20/23 02:21: WBC 9.4, RBC 3.69 L, Hgb 11.2 L, Hct 36.4 L, MCV 98.6, MCH 30.4, MCHC 30.8 L, RDW Std Deviation 49.0 H, RDW Coeff of [place] 13.6, Plt Count 200, MPV 9.0, Immature Gran % (Auto) 0.300, Neut % (Auto) 88.5 H, Lymph % (Auto) 8.7 L, [place] % (Auto) 2.3, Eos % (Auto) 0.0, Baso % (Auto) 0.2, Absolute Neuts (auto) 8.3 H, Absolute Lymphs (auto) 0.82 L, Nucleated RBC % 0, Sodium 142, Potassium 4.5, Chloride 106, Carbon Dioxide 28.0, Anion Gap 8, BUN 17, Creatinine 1.60 H, Estim Creat Clear Calc 17.46, Est GFR (MDRD) Af Amer 39 L, Est GFR (MDRD) Non-Af 32 L, BUN/Creatinine Ratio 10.6, Glucose 203 H, Hemoglobin A1c 5.8 H, Calcium 8.6, Total Bilirubin 0.50, AST 29, ALT 12 L, Alkaline Phosphatase 123 H, Troponin I High Sens 83 H, Total Protein 6.4, Total Protein (PEP) Cancelled, Albumin 3.1 L, Globulin 3.3 07/20/23 02:21: Globulin Cancelled, Albumin/Globulin Ratio 0.9, Triglycerides 74, Cholesterol 158, LDL Cholesterol 54, VLDL Cholesterol 15, HDL Cholesterol 89, IgG Cancelled, IgA Cancelled, IgM Cancelled, Immunofixation Screen Cancelled, Albumin (MICHEL) Cancelled, Albumin/Globulin (MICHEL) Cancelled, [id number] MICHEL Cancelled, Mswwa-[id number] MICHEL Cancelled, Beta-Globulins (MICHEL) Cancelled, Gamma Globulins (MICHEL) Cancelled, MICHEL M-Jay Cancelled, MICHEL Comments Cancelled, MICHEL Interpretation Cancelled, Free [place] LC, Quant Cancelled, Free Lambda LC, Quant Cancelled, Free [place]/Lambda Ratio Cancelled Cardiology Labs/Tests 07/19/23 19:40: WBC 11.2 H, RBC 4.25, Hgb 12.7, Hct 40.6, MCV 95.5, MCH 29.9, MCHC 31.3 L, Plt Count 235, MPV 8.9, Immature Gran % (Auto) 0.400, Neut % (Auto) 80.6 H, Lymph % (Auto) 11.9 L, [place] % (Auto) 5.9, Eos % (Auto) 0.6, Baso % (Auto) 0.6, Absolute Neuts (auto) 9.0 H, Nucleated RBC % 0, Sodium 138, Potassium 4.2, Chloride 106, Carbon Dioxide 27.0, Anion Gap 5, BUN 15, Creatinine 1.52 H, Est GFR (MDRD) Af Amer 41 L, Est GFR (MDRD) Non-Af 34 L, BUN/Creatinine Ratio 9.9 L, Glucose 138 H, Calcium 9.6 07/19/23 21:29: Urine Color Yellow, Urine Clarity Sl. Cloudy, Urine pH 5.0, Ur Specific [place] 1.015, Urine Protein 30 H, Urine Glucose (UA) Normal, Urine Ketones Negative, Urine Occult Blood 150 H, Urine Nitrite Positive H, Urine Bilirubin Negative, Urine Urobilinogen Normal, Ur Leukocyte Esterase 500 H, Urine RBC 5-10 SEEN, Urine WBC 25-50 SEEN 07/19/23 21:50: Magnesium 2.0 07/20/23 02:21: WBC 9.4, RBC 3.69 L, Hgb 11.2 L, Hct 36.4 L, MCV 98.6, MCH 30.4, MCHC 30.8 L, Plt Count 200, MPV 9.0, Immature Gran % (Auto) 0.300, Neut % (Auto) 88.5 H, Lymph % (Auto) 8.7 L, [place] % (Auto) 2.3, Eos % (Auto) 0.0, Baso % (Auto) 0.2, Absolute Neuts (auto) 8.3 H, Nucleated RBC % 0, Sodium 142, Potassium 4.5, Chloride 106, Carbon Dioxide 28.0, Anion Gap 8, BUN 17, Creatinine 1.60 H, Est GFR (MDRD) Af Amer 39 L, Est GFR (MDRD) Non-Af 32 L, BUN/Creatinine Ratio 10.6, Glucose 203 H, Hemoglobin A1c 5.8 H, Calcium 8.6, Total Bilirubin 0.50, Triglycerides 74, Cholesterol 158, LDL Cholesterol 54, VLDL Cholesterol 15, HDL Cholesterol 89 Rhythm: EKG: ECHO: Stress Test: Cardiac Cath: PCI: CT Surgery: Holter monitor: EPS: PPM: CXR: Chest CT Scan: Radiography Diagnostic Testing: Radiology Impression Abdomen/Pelvis CT 07/19/23 19:30 IMPRESSION: 1. Diffuse mesenteric edema and minimal free fluid within the pelvis of uncertain etiology. No bowel obstruction and no evidence of bowel perforation. 2. Nonspecific air-fluid levels within nondilated small bowel perhaps related to an enteritis. 3. Diffuse mottled appearance of the visualized spine, pelvis, and hips as well as multiple ribs with multifocal scattered lucent/lytic lesions suggesting diffuse metastatic disease or perhaps multiple myeloma. Recommend oncologic evaluation. 4. Apparent inferior endplate pathologic fracture of L5 with approximately 50% mid vertebral body height loss and no retropulsion of the posterior cortex or involvement of the posterior elements/pedicles. 5. Poorly visualized gallbladder, either partially decompressed or perhaps surgically absent with possible fluid extending from the gallbladder fossa along the inferior margin of the liver. Evaluation can be clarified with ultrasound and is limited without the use of intravenous contrast on the current exam. Electronically Signed: Shawn Wilson DO at 20:33 EST , ADDENDUM: 07/19/232103 IMPRESSION: 1. Diffuse mesenteric edema and minimal free fluid within the pelvis of uncertain etiology. No bowel obstruction and no evidence of bowel perforation. 2. Nonspecific air-fluid levels within nondilated small bowel perhaps related to an enteritis. 3. Diffuse mottled appearance of the visualized spine, pelvis, and hips as well as multiple ribs with multifocal scattered lucent/lytic lesions suggesting diffuse metastatic disease or perhaps multiple myeloma. Recommend oncologic evaluation. 4. Apparent inferior endplate pathologic fracture of L5 with approximately 50% mid vertebral body height loss and no retropulsion of the posterior cortex or involvement of the posterior elements/pedicles. 5. Poorly visualized gallbladder, either partially decompressed or perhaps surgically absent with possible fluid extending from the gallbladder fossa along the inferior margin of the liver. Evaluation can be clarified with ultrasound and is limited without the use of intravenous contrast on the current exam. N.B. : Nancy Ngo OT, confirmed on 07/19/2023 20:58:03 (ET) that the healthcare facility has received the radiology report. Electronically Signed: Shawn Wilson DO at 20:33 EST , Chest X-Ray 07/19/23 20:00 IMPRESSION: 1. Minimal bibasilar pulmonary opacities may be scarring or atelectasis rather than pneumonia. 2. Mild cardiomegaly. 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 Deep veins of the right lower extremity are patent and compressible segmentally. There is no evidence of right lower extremity deep vein thrombosis. Ordering Physician: Samra Samuel Referring Physician: N/A Performed By: Tom Sanabria RVT
--- NOTE | 2023-07-20 14:35 | STRESSREP ---
Stress Test Report Date: 07/20/2023 Procedure: Pharmacologic stress nuclear imaging study Indications: Chest pain Consent: Per the patient Procedure: The patient underwent pharmacologic (Regadenoson) evaluation with a peak heart rate of 61 beats per minute (46%predicted maximal heart rate) and a peak blood pressure of 158/68 mmHg. The baseline ECG demonstrated sinus bradycardia. EKG during lexiscan infusion revealed no significant ischemic changes. EKG post infusion revealed no significant ischemic changes [There were no cardiac dysrhythmias pretest, during pharmacologic infusion, or recovery]. [There was no complaint of chest discomfort during pharmacologic infusion or recovery]. The examination was discontinued secondary to completion of protocol. Impression: 1. Lexiscan stress test test is negative for Lexiscan infusion induced EKG changes of ischemia. 2. Lexiscan stress test test is negative for Lexiscan infusion induced chest pain. 3. Results of the nuclear portion of the test is as below Myocardial perfusion imaging study: Technique: The patient was injected with [] millicuries of technetium 99m Cardiolite and subsequently rest SPECT Cardiolite nuclear imaging was obtained in the horizontal long, vertical long, and short axis views. The patient underwent pharmacologic [Regadenoson 0.4mg] evaluation. Please see above for details. The patient was injected with [] millicuries of technetium 99m Cardiolite and subsequently stress SPECT Cardiolite nuclear imaging was obtained in the horizontal long, vertical long, and short axis views. A gated Cardiolite study at peak stress was obtained. Interpretation: Rest and stress SPECT Cardiolite nuclear imaging status post realignment, normalization, and attenuation correction demonstrate no evidence of significant ischemia or infarction. Gated images reveal no significant regional wall motion abnormalities. The reported LVEF is 56%. Impression: 1. There is no evidence of significant ischemia or infarction. 2. Estimated ejection fraction is 56%. This note was generated with [employer] software. It may contain incorrect words, spelling, and punctuation that were not noted in checking the note before signing.
--- NOTE | 2023-07-20 14:36 | PN_ITS ---
Subjective Subjective Patient seen and examined. Daughter was by her bedside. She says chest pain had not recurred again. She denies any lightheadedness or dizziness, palpitations, chest pain, nausea or vomiting or any other symptoms. Patient tells me that she has had breast lumps in both breasts for several years now but has never sought treatment because she did not want a needle stuck in her breast. She states she has 2 sisters who of breast cancer. Her mother reportedly also of ovarian cancer. She had stress test today results of which are pending. She has remained hemodynamically stable otherwise. Objective Data Objective Data Vital Signs: Vital Signs Temp Pulse Resp BP Pulse Ox O2 Del Method 97.8 F 56 L 16 135/52 H 97 Room Air 07/20/23 11:57 07/20/23 11:57 07/20/23 11:57 07/20/23 12:30 07/20/23 11:57 07/20/23 11:57 Oxygen Delivery Method Room Air Weight: 107 lb 5.842 oz Body Mass Index (BMI) 20.9 Intake & Output: Intake and Output for Last 24 Hours 07/18/23 07/19/23 07/20/23 23:59 23:59 23:59 Intake Total 550 / 550 1160 / 1160 Balance 550 / 550 1160 / 1160 Lab / Micro Data 07/20/23 02:21 07/20/23 02:21 Labs: Laboratory Results - last 24 hr 07/19/23 19:40: WBC 11.2 H, RBC 4.25, Hgb 12.7, Hct 40.6, MCV 95.5, MCH 29.9, MCHC 31.3 L, RDW Std Deviation 47.4 H, RDW Coeff of [place] 13.4, Plt Count 235, MPV 8.9, Immature Gran % (Auto) 0.400, Neut % (Auto) 80.6 H, Lymph % (Auto) 11.9 L, [place] % (Auto) 5.9, Eos % (Auto) 0.6, Baso % (Auto) 0.6, Absolute Neuts (auto) 9.0 H, Absolute Lymphs (auto) 1.33, Nucleated RBC % 0, Sodium 138, Potassium 4.2, Chloride 106, Carbon Dioxide 27.0, Anion Gap 5, BUN 15, Creatinine 1.52 H, Estim Creat Clear Calc 18.38, Est GFR (MDRD) Af Amer 41 L, Est GFR (MDRD) Non-Af 34 L, BUN/Creatinine Ratio 9.9 L, Glucose 138 H, Calcium 9.6, Troponin I High Sens 112 H 07/19/23 21:29: Urine Color Yellow, Urine Clarity Sl. Cloudy, Urine pH 5.0, Ur Specific [place] 1.015, Urine Protein 30 H, Urine Glucose (UA) Normal, Urine Ketones Negative, Urine Occult Blood 150 H, Urine Nitrite Positive H, Urine Bilirubin Negative, Urine Urobilinogen Normal, Ur Leukocyte Esterase 500 H, Urine RBC 5-10 SEEN, Urine WBC 25-50 SEEN, Ur Squamous Epith Cells 0-5 SEEN, Urine Bacteria 1+, Urine Mucus 0 SEEN 07/19/23 21:50: Magnesium 2.0, Troponin I High Sens 76 H 07/20/23 02:21: WBC 9.4, RBC 3.69 L, Hgb 11.2 L, Hct 36.4 L, MCV 98.6, MCH 30.4, MCHC 30.8 L, RDW Std Deviation 49.0 H, RDW Coeff of [place] 13.6, Plt Count 200, MPV 9.0, Immature Gran % (Auto) 0.300, Neut % (Auto) 88.5 H, Lymph % (Auto) 8.7 L, [place] % (Auto) 2.3, Eos % (Auto) 0.0, Baso % (Auto) 0.2, Absolute Neuts (auto) 8.3 H, Absolute Lymphs (auto) 0.82 L, Nucleated RBC % 0, Sodium 142, Potassium 4.5, Chloride 106, Carbon Dioxide 28.0, Anion Gap 8, BUN 17, Creatinine 1.60 H, Estim Creat Clear Calc 17.46, Est GFR (MDRD) Af Amer 39 L, Est GFR (MDRD) Non-Af 32 L, BUN/Creatinine Ratio 10.6, Glucose 203 H, Hemoglobin A1c 5.8 H, Calcium 8.6, Total Bilirubin 0.50, AST 29, ALT 12 L, Alkaline Phosphatase 123 H, Troponin I High Sens 83 H, Total Protein 6.4, Total Protein (PEP) Cancelled, Albumin 3.1 L, Globulin 3.3 07/20/23 02:21: Globulin Cancelled, Albumin/Globulin Ratio 0.9, Triglycerides 74, Cholesterol 158, LDL Cholesterol 54, VLDL Cholesterol 15, HDL Cholesterol 89, IgG Cancelled, IgA Cancelled, IgM Cancelled, Immunofixation Screen Cancelled, Albumin (MICHEL) Cancelled, Albumin/Globulin (MICHEL) Cancelled, [id number] MICHEL Cancelled, [id number]-[id number] MICHEL Cancelled, Beta-Globulins (MICHEL) Cancelled, Gamma Globulins (MICHEL) Cancelled, MICHEL M-Jay Cancelled, MICHEL Comments Cancelled, MICHEL Interpretation Cancelled, Free [place] LC, Quant Cancelled, Free Lambda LC, Quant Cancelled, Free [place]/Lambda Ratio Cancelled Radiography Diagnostic Testing: Radiology Impression Abdomen/Pelvis CT 07/19/23 19:30 IMPRESSION: 1. Diffuse mesenteric edema and minimal free fluid within the pelvis of uncertain etiology. No bowel obstruction and no evidence of bowel perforation. 2. Nonspecific air-fluid levels within nondilated small bowel perhaps related to an enteritis. 3. Diffuse mottled appearance of the visualized spine, pelvis, and hips as well as multiple ribs with multifocal scattered lucent/lytic lesions suggesting diffuse metastatic disease or perhaps multiple myeloma. Recommend oncologic evaluation. 4. Apparent inferior endplate pathologic fracture of L5 with approximately 50% mid vertebral body height loss and no retropulsion of the posterior cortex or involvement of the posterior elements/pedicles. 5. Poorly visualized gallbladder, either partially decompressed or perhaps surgically absent with possible fluid extending from the gallbladder fossa along the inferior margin of the liver. Evaluation can be clarified with ultrasound and is limited without the use of intravenous contrast on the current exam. Electronically Signed: Shawn Wilson DO at 20:33 EST , ADDENDUM: 07/19/232103 IMPRESSION: 1. Diffuse mesenteric edema and minimal free fluid within the pelvis of uncertain etiology. No bowel obstruction and no evidence of bowel perforation. 2. Nonspecific air-fluid levels within nondilated small bowel perhaps related to an enteritis. 3. Diffuse mottled appearance of the visualized spine, pelvis, and hips as well as multiple ribs with multifocal scattered lucent/lytic lesions suggesting diffuse metastatic disease or perhaps multiple myeloma. Recommend oncologic evaluation. 4. Apparent inferior endplate pathologic fracture of L5 with approximately 50% mid vertebral body height loss and no retropulsion of the posterior cortex or involvement of the posterior elements/pedicles. 5. Poorly visualized gallbladder, either partially decompressed or perhaps surgically absent with possible fluid extending from the gallbladder fossa along the inferior margin of the liver. Evaluation can be clarified with ultrasound and is limited without the use of intravenous contrast on the current exam. N.B. : Nancy Ngo OT, confirmed on 07/19/2023 20:58:03 (ET) that the healthcare facility has received the radiology report. Electronically Signed: Shawn Pulliam DO Katie at 20:33 EST , Chest X-Ray 07/19/23 20:00 IMPRESSION: 1. Minimal bibasilar pulmonary opacities may be scarring or atelectasis rather than pneumonia. 2. Mild cardiomegaly. 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 Deep veins of the right lower extremity are patent and compressible segmentally. There is no evidence of right lower extremity deep vein thrombosis. Ordering Physician: Samra Samuel Referring Physician: N/A Performed By: Tom Sanabria RVT Physical Exam Const alert, oriented x3 and no apparent distress General Appearance: cooperative HEENT normocephalic, head/scalp atraumatic, moist oral mucous membranes and oropharynx normal Eyes PERRL and EOMs intact bilaterally Neck no lymphadenopathy and supple Lymph Lymphatic: no lymphadenopathy noted and no lymphedema noted Resp normal respiratory effort, normal air movement and clear to auscultation bilaterally Cardio regular rate, regular rhythm, S1 normal heart sound, S2 normal heart sound and no murmurs GI normal to inspection, nondistended, normoactive bowel sounds and soft to palpation Extremity normal capillary refill, no clubbing, cyanosis or edema and no calf tenderness General Extremity: no tenderness to palpation of joints or extremities Skin Skin Narrative: has superficial venous ulceration over the right inner ankle. Patient has a breast lump in each breast, with overlying skin tethered to the mass. The mass is about 3 to 4 cm in diameter, very hard with inverted nipples. Lesions: lesion noted Neuro CN's II-XII intact bilaterally, no focal motor deficits, no sensory deficits noted and deep tendon reflexes 2+ bilaterally Motor Exam: strength 5/5 throughout and general weakness Psych thought process normal, cooperative and affect normal Appearance: appropriate Assessment & Plan Assessment/Plan (1) Malignant neoplasm of both breasts: QUALIFIERS: Breast location: overlapping sites of breast Estrogen receptor status: unspecified Patient sex: female Qualified Code(s): C50.811 - Malignant neoplasm of overlapping sites of right female breast; C50.812 - Malignant neoplasm of overlapping sites of left female breast (2) Hypertensive urgency: (3) Elevated troponin: (4) Urinary tract infection: (5) Acute kidney injury: PLAN: Plan # Chest pain * Chest pain has not recurred since admission. Chest x-ray showed minimal bibasilar pulmonary opacities. Initial troponin was 112. * Cardiology consulted. 2D echo done and pending. Stress test done and results pending. * In light of the finding of bilateral breast mass, I am wondering if this chest pain was musculoskeletal and likely related to the mass which is likely malignant. * Sublingual nitroglycerin as needed. P.o. aspirin 81 mg daily. #Hypertensive urgency * Blood pressure was markedly elevated on admission and was over 200 systolic. Patient states she is known to have hypertension but has not taken the medication for the past 5 years. She has a blood pressure machine at home and says she occasionally checks her blood pressure. She does not have a PCP and has not taken any medication for 5 years now. * On IV hydralazine as needed. Will add on p.o. metoprolol. #UTI: Urinalysis showed evidence of UTI. On IV Rocephin. Await urine cultures and adjust antibiotics as needed. #Bilateral breast mass likely breast cancer with mets to the bone * Chest CT done on admission on account of the chest pain showed multifocal scattered lucent lytic lesions with pathologic fracture of L5 concerning for diffuse metastatic disease * Patient has very high bilateral breast mass tethered to the overlying skin is concerning for malignancy. Patient states she has had these breast mass for about 3 years and has slowly grown. She has never sought any treatment for it. * There is evidence of some peau d'orange on the overlying skin. * Patient's 2 sisters both of breast cancer and her mother of ovarian cancer. There is therefore concern for possible BRCA gene mutation. Patient's daughter present who says she was also diagnosed with a breast lesion but it was nonmalignant. Patient's daughter wondered if she has to undergo genetic testing. Daughter counseled that she needs to follow-up with her primary care doctor and to give a thorough family history of both first and second line relatives having breast and ovarian cancer. This will help for determination to be made about need for BRCA testing. * oncology consulted. general surgery consulted for breast biopsy #CKD stage III: Cr was 1.52 on admission, and now up to 1.6. No baseline CR in EMR. WIll gently hydrate and monitor for any change in Cr #Hyperglycemia: patient's blood glucose was mildly elevated. A1C is 5.8., therefore not a diabetic. Will monitor DVT prophylaxis: Heparin Charges/Coding Visit Charges Inpatient E&M: 28789 Subs Hosp L2
[2023-07-20] MEDS: amLODIPine 10 MG Tablet PO (16:04)
[2023-07-20] MEDS: Heparin Injection (Vial) 5,000 UNIT/ML VIAL 5000 UNIT SC ×2 (16:04→21:05)
[2023-07-20] MEDS: Aspirin E.C. 81 MG Tablet PO (16:04)
[2023-07-20] MEDS: 0.9% Saline Lock 10 ML Syringe IV (16:05)
--- NOTE | 2023-07-20 19:00 | BRBX_PTH ---
PATIENT: JASPER ESPARZA LOC: [facility] U#:[id number] AGE/SX: 87/F ROOM: [facility] RE07/19/[address]: Dr. Radha Crouch MD : [id number] BED: 1 DIS: 07/21/2023 SPEC #: [id number] RECD: 07/21/23 10:14 STATUS: GUNNER ARRIAGA #: [id number] SHANI: 07/20/23 19:[address]: Colby Negron DEPT: SURGICAL PATHOLOGY RECD BY: Berenice Shannon ENTERED: 07/21/23 10:15 SP TYPE: BREAST BX OTHR DR: MD Dr. Colby Smith MD Dr. Mansour Isckarus, MD Dr. Nana Yaa Koram, MD Dr. Nagapradee Nagajothi, MD No Primary Care Phys Tissues: Left breast, NOS Procedures: Surgery Specimen Level IV Comments: @ Ordering doctor for SUIV edited from to @ by MILLIE at 07/21/23 1440 @ Submitting doctor edited from to @ by RGOOD at 07/21/23 1440 HEADER OPERATION: Needle core biopsy, left breast with ultrasound guidance PRE-OP DIAGNOSIS: Left breast TISSUE SUBMITTED: Left breast MICROSCOPIC DIAGNOSIS Left breast mass, needle core biopsy: Invasive lobular carcinoma with the following characteristics: Maximal length - 11 millimeters Nuclear grade - 1/3 See comment. AM:radha 07/25/2023 COMMENT Immunohistochemistry ([id number]) supports the above diagnosis. Case has been reviewed in consultation with Dr. Trujillo who concurs with the above diagnosis. IDC:SJ MICROSCOPIC DESCRIPTION Slides are reviewed. GROSS DESCRIPTION Received is one container labeled with the patient's name and not further designated. The specimen consists of a single core of light rolle soft tissue measuring 1.5 cm in length and 0.2 cm in diameter. The specimen is totally submitted in one cassette. / AM:radha 07/21/2023 TC:0 Ischemic Time: 1 minute Fixation Time: 72 hours CPT: 86480
--- NOTE | 2023-07-20 19:46 | NURSING ---
Assisted Dr. Negron with a Core needle biopsy of Left breast with ultrasound guidance for this patient. Biopsy tissue container and paperwork (given by lab) was labeled, filled out and delivered to lab by this RN. Given to a laborer operator.
--- NOTE | 2023-07-20 20:03 | EX.PCM.CON.S ---
Assessment & Plan Assessment/Plan (1) Malignant neoplasm of both breasts: QUALIFIERS: Breast location: overlapping sites of breast Estrogen receptor status: unspecified Patient sex: female Qualified Code(s): C50.811 - Malignant neoplasm of overlapping sites of right female breast; C50.812 - Malignant neoplasm of overlapping sites of left female breast PLAN: This is an 87-year-old female with locally advanced bilateral breast tumors as well as probable diffuse metastasis to whom I am consulted for consideration of a breast biopsy. Oncology wishes to know patient's ER receptor status. This request has been passed along to Mrs. Hanley and her family. She is initially reluctant, however, after the reasoning is described she provides her consent to proceed. Therefore, a biopsy was obtained from patient's left breast mass using ultrasound guidance. Patient tolerated procedure without complication. Steri-Strips and a bandage were applied as a dressing. I have asked patient to refrain from showering for 48 hours and to keep this dressing in place for that time. Thereafter the dressing may be removed and she may begin showering as normal. She would benefit from ice to this site for the next 24 hours. HPI Consult Data Date of Consult: 07/20/23 HPI Narrative Reason for Consultation: Consideration of breast core needle biopsy HPI Narrative: JASPER HANLEY, is a 87 F who presented to [facility] with complaints of chest pain and through her workup has been found to have convincing evidence of widely metastatic breast cancer. Oncology has requested core needle biopsy of 1 of patient's breast masses to determine its ER receptor status for consideration of hormonal blockade. Mrs. Hanley is accompanied by her children in the room. Together they shared that they have been aware of growth in the left breast for 4 years in the right breast for 3 years. They also share that Mrs. Hanley had 2 sisters with breast cancer that were 75 and 82, respectively, when given breast cancer diagnosis. Both underwent surgery with mastectomy and at that time Mrs. Hanley about never to proceed with treatment for breast cancer should she herself end up with this diagnosis. [facility] Medical History (Updated 07/20/23 @ 13:[address] 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 Samra Samuel MD) Mother Cancer age 54, unclear cancer, metastatic. Father Myocardial infarction Hypertension Heart disease Son Phyllis Gehrig's disease Surgical History (Updated 07/19/23 @ 23:[address] Samra Samuel MD) History of tonsillectomy and adenoidectomy Hx of appendectomy Hx of tubal ligation Social History (Updated 07/19/23 @ 23:[address] Samra Samuel MD) household members: other details: Her daughter lives with her. Smoking Status: Never smoker alcohol intake: never substance use type: does not use Physical Exam Const alert and oriented x3 Constitutional Narrative: Very hard of hearing General Appearance: cooperative and frail Lymph Lymphatic: lymphadenopathy Lymphadenopathy Laterality: left (Axilla) Positive for soft Chest Chest Narrative: Firm, fixed masses of the bilateral breast with distortion of the right nipple/areolar complex. The left mass measures approximately 6 cm in diameter while the right mass measures just over 4 cm in diameter. Resp normal respiratory effort Lab / Micro Data 07/20/23 02:21 07/20/23 02:21 Labs: Laboratory Results - last 24 hr 07/19/23 19:40: Sodium 138, Potassium 4.2, Chloride 106, Carbon Dioxide 27.0, Anion Gap 5, BUN 15, Creatinine 1.52 H, Estim Creat Clear Calc 18.38, Est GFR (MDRD) Af Amer 41 L, Est GFR (MDRD) Non-Af 34 L, BUN/Creatinine Ratio 9.9 L, Glucose 138 H, Calcium 9.6, Troponin I High Sens 112 H 07/19/23 21:29: Urine Color Yellow, Urine Clarity Sl. Cloudy, Urine pH 5.0, Ur Specific [place] 1.015, Urine Protein 30 H, Urine Glucose (UA) Normal, Urine Ketones Negative, Urine Occult Blood 150 H, Urine Nitrite Positive H, Urine Bilirubin Negative, Urine Urobilinogen Normal, Ur Leukocyte Esterase 500 H, Urine RBC 5-10 SEEN, Urine WBC 25-50 SEEN, Ur Squamous Epith Cells 0-5 SEEN, Urine Bacteria 1+, Urine Mucus 0 SEEN 07/19/23 21:50: Magnesium 2.0, Troponin I High Sens 76 H 07/20/23 02:21: WBC 9.4, RBC 3.69 L, Hgb 11.2 L, Hct 36.4 L, MCV 98.6, MCH 30.4, MCHC 30.8 L, RDW Std Deviation 49.0 H, RDW Coeff of [place] 13.6, Plt Count 200, MPV 9.0, Immature Gran % (Auto) 0.300, Neut % (Auto) 88.5 H, Lymph % (Auto) 8.7 L, [place] % (Auto) 2.3, Eos % (Auto) 0.0, Baso % (Auto) 0.2, Absolute Neuts (auto) 8.3 H, Absolute Lymphs (auto) 0.82 L, Nucleated RBC % 0, Sodium 142, Potassium 4.5, Chloride 106, Carbon Dioxide 28.0, Anion Gap 8, BUN 17, Creatinine 1.60 H, Estim Creat Clear Calc 17.46, Est GFR (MDRD) Af Amer 39 L, Est GFR (MDRD) Non-Af 32 L, BUN/Creatinine Ratio 10.6, Glucose 203 H, Hemoglobin A1c 5.8 H, Calcium 8.6, Total Bilirubin 0.50, AST 29, ALT 12 L, Alkaline Phosphatase 123 H, Troponin I High Sens 83 H, Total Protein 6.4, Total Protein (PEP) Cancelled, Albumin 3.1 L, Globulin 3.3 07/20/23 02:21: Globulin Cancelled, Albumin/Globulin Ratio 0.9, Triglycerides 74, Cholesterol 158, LDL Cholesterol 54, VLDL Cholesterol 15, HDL Cholesterol 89, IgG Cancelled, IgA Cancelled, IgM Cancelled, Immunofixation Screen Cancelled, Albumin (MICHEL) Cancelled, Albumin/Globulin (MICHEL) Cancelled, [id number] MICHEL Cancelled, [id number]-[id number] MICHEL Cancelled, Beta-Globulins (MICHEL) Cancelled, Gamma Globulins (MICHEL) Cancelled, MICHEL M-Jay Cancelled, MICHEL Comments Cancelled, MICHEL Interpretation Cancelled, Free [place] LC, Quant Cancelled, Free Lambda LC, Quant Cancelled, Free [place]/Lambda Ratio Cancelled Imagaing Radiology Impression Abdomen/Pelvis CT 07/19/23 19:30 IMPRESSION: 1. Diffuse mesenteric edema and minimal free fluid within the pelvis of uncertain etiology. No bowel obstruction and no evidence of bowel perforation. 2. Nonspecific air-fluid levels within nondilated small bowel perhaps related to an enteritis. 3. Diffuse mottled appearance of the visualized spine, pelvis, and hips as well as multiple ribs with multifocal scattered lucent/lytic lesions suggesting diffuse metastatic disease or perhaps multiple myeloma. Recommend oncologic evaluation. 4. Apparent inferior endplate pathologic fracture of L5 with approximately 50% mid vertebral body height loss and no retropulsion of the posterior cortex or involvement of the posterior elements/pedicles. 5. Poorly visualized gallbladder, either partially decompressed or perhaps surgically absent with possible fluid extending from the gallbladder fossa along the inferior margin of the liver. Evaluation can be clarified with ultrasound and is limited without the use of intravenous contrast on the current exam. Electronically Signed: Shawn Pulliam DO Katie at 20:33 EST , ADDENDUM: 07/19/232103 IMPRESSION: 1. Diffuse mesenteric edema and minimal free fluid within the pelvis of uncertain etiology. No bowel obstruction and no evidence of bowel perforation. 2. Nonspecific air-fluid levels within nondilated small bowel perhaps related to an enteritis. 3. Diffuse mottled appearance of the visualized spine, pelvis, and hips as well as multiple ribs with multifocal scattered lucent/lytic lesions suggesting diffuse metastatic disease or perhaps multiple myeloma. Recommend oncologic evaluation. 4. Apparent inferior endplate pathologic fracture of L5 with approximately 50% mid vertebral body height loss and no retropulsion of the posterior cortex or involvement of the posterior elements/pedicles. 5. Poorly visualized gallbladder, either partially decompressed or perhaps surgically absent with possible fluid extending from the gallbladder fossa along the inferior margin of the liver. Evaluation can be clarified with ultrasound and is limited without the use of intravenous contrast on the current exam. N.B. : Nancy Ngo OT, confirmed on 07/19/2023 20:58:03 (ET) that the healthcare facility has received the radiology report. Electronically Signed: Shawn Pulliam DO Katie at 20:33 EST , Chest X-Ray 07/19/23 20:00 IMPRESSION: 1. Minimal bibasilar pulmonary opacities may be scarring or atelectasis rather than pneumonia. 2. Mild cardiomegaly. Electronically Signed: Shawn Wilson, at 20:27 EST , Echocardiogram 07/19/23 23:15 Interpretation Summary The estimated ejection fraction is 55-60 %. Unable to assess diastolic dysfunction. The left atrium is moderately enlarged. Mild (1+) mitral valve insufficiency. Mild aortic stenosis. Mild (1+) aortic valve insufficiency. Ordering Physician: Samra Samuel Referring Physician: NO PCP Performed By: Elsie Chavira RDCS, RVT Venous Doppler Study 07/19/23 23:25 Interpretation Summary Chronic superficial vein thrombosis is noted in the right great saphenous vein. Deep veins of the right lower extremity are patent and compressible segmentally. There is no evidence of right lower extremity deep vein thrombosis. Ordering Physician: Samra Samuel Referring Physician: N/A Performed By: Tom Sanabria, RVT Charges/Coding Visit Charges Inpatient E&M: 72383 Init Hosp L2
--- NOTE | 2023-07-20 20:09 | PCM.OP.PRO ---
Procedure Report Date of Procedure: 07/20/23 Procedure: Core needle biopsy of left breast Description: After a detailed discussion regarding the risks and benefits of the biopsy procedure, the patient was positioned supine with her arm extended overhead in her hospital bed. Formal, written consents were obtained prior to positioning. Ultrasound was used to localize the lesion in the left breast inferior to the nipple. Locally 1% lidocaine was infiltrated about the mass using ultrasound guidance. Once the area was sufficiently anesthetized, a small stab incision was made in the skin and the C[place]stro core max core needle device was introduced percutaneously. Ultrasound was used to guide the tip of the device to the border of the suspicious lesion and maintain the appropriate trajectory given the patient's small breast. Then the mass was sampled with a single core was were placed in solution for pathologic processing. Pressure was applied until hemostasis was obtained. The skin was cleaned and Steri-Strips were applied over the stab incision for the biopsy procedure. Patient tolerated the procedure with no complications EBL: 2 mL Complications: None Procedures Integumentary [id number]: [id number] Bx breast 1st lesion us imag
[2023-07-20] MEDS: Ceftriaxone 1 GM/50 ML BAG IV (21:04)
[2023-07-21] MEDS: 0.9% Normal Saline (1000mL) 1,000 ML 100 ML IV (02:22)
[2023-07-21] MEDS: Acetaminophen 325 MG Tablet 650 MG PO ×2 (02:45→09:03)
[2023-07-21 03:59] VITALS: BP 112/61; PULSE 60; RESP 18; TEMP 37.2; O2SAT 98
[2023-07-21 06:05] LABS: Absolute Neutrophil Count 6.1 X10^3/uL (2.0-7.7); Basophil# 0.05 X10^3/uL; Basophil% 0.6 % (0-1); Eosinophil# 0.08 X10^3/uL; Hematocrit 32.2 % (37-47); Hemoglobin 9.8 g/dL (12.0-15.0); Mean Corp Hgb Conc 30.4 g/dL (32-36); Mean Corpuscular Volume 98.5 fL (81-99); Mean Platelet Vol. 9.3 fl (6.2-12.0); Monocyte# 0.58 X10^3/uL; Monocyte% 7.2 % (0-10); NRBC Flagged by Analyzer 0 % (0-5); Neutrophil # 6.05 X10^3/uL (2.7-7.7); Neutrophil % 74.7 % (47-70); Platelet Count 181 K/mm3 (150-450); RBC Distribution Width SD 50.5 fl (35.1-43.9); Red Blood Count 3.27 M/mm3 (4.2-5.4); White Blood Count 8.1 K/mm3 (4.4-11.0)
[2023-07-21 06:31] LABS: Anion Gap 5 (5-15); BUN 16 mg/dL (7-18); BUN/Creat Ratio 12.3 RATIO (10-20); Calcium,Total 8.3 mg/dL (8.5-10.1); Chloride 112 mmol/L (98-107); EST Glomerular Filtration Rate 41 mL/min (>60); Est Glom Filt Rate - Afr Amer 50 mL/min (>60); Estimated Creatinine Clearance 21.49 ml/min; Glucose 126 mg/dL (74-106); Potassium 3.9 mmol/L (3.5-5.1); Sodium Level 143 mmol/L (136-145)
--- NOTE | 2023-07-21 08:25 | PCM.PN.SRG ---
Subjective Subjective Patient seen and examined during AM rounds. She is found sleeping on my arrival to the room. She denies any pain from her biopsy site overnight. Objective Data Objective Data Vital Signs: Vital Signs Temp Pulse Resp BP Pulse Ox O2 Del Method 98.9 F 60 18 112/61 98 Room Air 07/21/23 03:59 07/21/23 03:59 07/21/23 03:59 07/21/23 03:59 07/21/23 03:59 07/21/23 03:59 Oxygen Delivery Method Room Air Weight: 107 lb 5.842 oz Body Mass Index (BMI) 20.9 Intake & Output: Intake and Output for Last 24 Hours 07/19/23 07/20/23 07/21/23 23:59 23:59 23:59 Intake Total 550 / 550 1560 / 1560 1120 / 1120 Balance 550 / 550 1560 / 1560 1120 / 1120 Lab / Micro Data 07/21/23 05:36 07/21/23 05:36 Labs: Laboratory Results - last 24 hr 07/20/23 02:21: Hemoglobin A1c 5.8 H, Total Protein (PEP) Cancelled, Globulin Cancelled, IgG Cancelled, IgA Cancelled, IgM Cancelled, Immunofixation Screen Cancelled, Albumin (MICHEL) Cancelled, Albumin/Globulin (MICHEL) Cancelled, [id number] MICHEL Cancelled, [id number]-[id number] MICHEL Cancelled, Beta-Globulins (MICHEL) Cancelled, Gamma Globulins (MICHEL) Cancelled, MICHEL M-Jay Cancelled, MICHEL Comments Cancelled, MICHEL Interpretation Cancelled, Free [place] LC, Quant Cancelled, Free Lambda LC, Quant Cancelled, Free [place]/Lambda Ratio Cancelled 07/21/23 05:36: WBC 8.1, RBC 3.27 L, Hgb 9.8 L, Hct 32.2 L, MCV 98.5, MCH 30.0, MCHC 30.4 L, RDW Std Deviation 50.5 H, RDW Coeff of Ruslan 14.0, Plt Count 181, MPV 9.3, Immature Gran % (Auto) 0.500, Neut % (Auto) 74.7 H, Lymph % (Auto) 16.0 L, [place] % (Auto) 7.2, Eos % (Auto) 1.0, Baso % (Auto) 0.6, Absolute Neuts (auto) 6.1, Absolute Lymphs (auto) 1.30, Nucleated RBC % 0, Sodium 143, Potassium 3.9, Chloride 112 H, Carbon Dioxide 26.0, Anion Gap 5, BUN 16, Creatinine 1.30 H, Estim Creat Clear Calc 21.49, Est GFR (MDRD) Af Amer 50 L, Est GFR (MDRD) Non-Af 41 L, BUN/Creatinine Ratio 12.3, Glucose 126 H, Calcium 8.3 L Radiography Diagnostic Testing: Radiology Impression Echocardiogram 07/19/23 23:15 Interpretation Summary The estimated ejection fraction is 55-60 %. Unable to assess diastolic dysfunction. The left atrium is moderately enlarged. Mild (1+) mitral valve insufficiency. Mild aortic stenosis. Mild (1+) aortic valve insufficiency. 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 Deep veins of the right lower extremity are patent and compressible segmentally. There is no evidence of right lower extremity deep vein thrombosis. Ordering Physician: Samra Samuel Referring Physician: N/A Performed By: Tom Sanabria, RVT X-Ray 07/20/23 05:20 IMPRESSION: Unusual bowel gas pattern possibly due to patient''s positioning, Could consider a follow-up CT scan of the abdomen and pelvis for further information and follow-up to the distended bowel loops seen on the prior study. And inhomogeneous bony structures with multifocal erosive lesion suspicious for metastatic disease. Electronically Signed: Dyana Enriquez MD at 7:00 EST , Physical Exam Const oriented x3 and no apparent distress Chest Chest Narrative: Left breast biopsy site remains unremarkable with biopsy dressing clean dry and intact. Patient denies any significant tenderness with palpation of the area and I do not identify any underlying fluid collections to suggest hematoma. Resp normal respiratory effort Assessment & Plan Assessment/Plan (1) Malignant neoplasm of both breasts: QUALIFIERS: Breast location: overlapping sites of breast Estrogen receptor status: unspecified Patient sex: female Qualified Code(s): C50.811 - Malignant neoplasm of overlapping sites of right female breast; C50.812 - Malignant neoplasm of overlapping sites of left female breast PLAN: This is an 87-year-old female with locally advanced bilateral breast tumors as well as probable diffuse metastasis to whom I am consulted for consideration of a breast biopsy. Oncology wishes to know patient's ER receptor status. This biopsy was undertaken at bedside using ultrasound guidance yesterday in an uneventful fashion. Specimen has been received in the lab. Biopsy site remains unremarkable in appearance today. Wound care instructions were provided to patient and her daughter. No further follow-up with surgery required. Remainder of care per primary team. Charges/Coding Visit Charges Inpatient E&M: 40768 Subs Hosp L1
[2023-07-21 08:37] VITALS: O2SAT 96
[2023-07-21 09:00] VITALS: BP 177/56; PULSE 60; RESP 18; TEMP 37; O2SAT 95
[2023-07-21] MEDS: Heparin Injection (Vial) 5,000 UNIT/ML VIAL 5000 UNIT SC (09:00)
[2023-07-21] MEDS: Aspirin E.C. 81 MG Tablet PO (09:00)
[2023-07-21] MEDS: amLODIPine 10 MG Tablet PO (09:00)
[2023-07-21] MEDS: Pantoprazole Sodium 40 MG in 0.9% Normal Saline (100mL MB+) 100 ML 330 MG IV (09:01)
--- NOTE | 2023-07-21 12:00 | DCINST_ITS ---
Discharge Instructions Diet Discharge Diet: Low fat / Low cholesterol Activity Discharge Activity: Return to Normal Activity Weight Bearing Status: Weight bearing as tolerated Dressing / Incision Call your doctor if you observe: Fever of 101 or Higher, Shortness of breath, Dizziness, Swelling in the ankles, Chest pain and Increased palpitations (irregular heartbeat) Follow Up Care Test Results: Test results from this visit will be discussed in further detail at your follow- up appointment, if applicable. Discharge Plan Admission Admit Date/Time: 07/19/23 22:27 Primary Reason for Your Visit: hypertensive urgency, metastatic breast cancer Attending Provider: Radha Crouch Primary Care Provider: Care Physician,No Primary Consulting Providers: Nancy Shell; Samra Samuel; Katina Archuleta; Colby Negron Instructions Patient Instructions: BRCA, What Is Breast Cancer? Discharge Orders/Prescriptions Prescriptions: New amlodipine 10 mg Tablet 10 mg PO DAILY Qty: 30 2RF cefdinir 300 mg capsule 300 mg PO BID Qty: 10 0RF Referrals / Follow Up: Kelly Coelho MD [Med Staff - Active Staff] - Within 2 Weeks (call to set up PCP appointment) Colby Negron MD [Med Staff - Active Staff] - Within 2 Weeks Katina Archuleta MD [Med Staff - Active Staff] - Within 2 Weeks Care Physician,No Primary [Primary Care Provider] - NOT,DEFINED [Non-Staff] - Disposition Disposition (needs filled in before D/C Order can be placed): Home, Self Care
--- NOTE | 2023-07-21 12:00 | DS.PCM_ITS ---
Providers Date of Admission: 07/19/23 Date of Discharge: 07/21/23 Primary Care Physician: Joann Primary Care Phys Consultations 07/19/23 23:15 Consult: Cardiology Routine Consulting Provider: Nancy Shell Reason for Consult: Indeterm trop, chest pain, HTN urgency EMERGENT Consult: No MD Notified: Yes Date Notified: 07/19/23 Time Notified: 22:30 Method of Notification: Text 07/20/23 07:00 Consult: Oncology/Hematology Routine Consulting Provider: Katina Archuleta Reason for Consult: Atypical CT, concerning for multiple myeloma EMERGENT Consult: No MD Notified: Yes Date Notified: 07/20/23 Time Notified: 09:05 Method of Notification: Verbal 07/20/23 11:29 Consult: General Surgery Routine Consulting Provider: Colby Negorn Reason for Consult: breast cancer biopsy EMERGENT Consult: No Notified: Yes Date Notified: 07/20/23 Time Notified: 11:29 Method of Notification: Verbal Reason For Visit: ELEVATED TROP, HTN URGENCY, UTI, SUSPECTED MULTIPL Diagnosis Discharge Diagnosis (1) Malignant neoplasm of both breasts: Status: Acute Code(s): C50.911 - Malignant neoplasm of unspecified site of right female breast; C50.912 - Malignant neoplasm of unspecified site of left female breast Qualifiers: Breast location: overlapping sites of breast Estrogen receptor status: unspecified Patient sex: female Qualified Code(s): C50.811 - Malignant neoplasm of overlapping sites of right female breast; C50.812 - Malignant neoplasm of overlapping sites of left female breast Plan # Chest pain * Chest pain has not recurred since admission. Chest x-ray showed minimal bibas ilar pulmonary opacities. Initial troponin was 112. * Cardiology consulted. 2D echo done and pending. Stress test done and results pending. * In light of the finding of bilateral breast mass, I am wondering if this chest pain was musculoskeletal and likely related to the mass which is likely malign ant. * Sublingual nitroglycerin as needed. P.o. aspirin 81 mg daily. #Hypertensive urgency * Blood pressure was markedly elevated on admission and was over 200 systolic. Patient states she is known to have hypertension but has not taken the medication for the past 5 years. She has a blood pressure machine at home and says she occasionally checks her blood pressure. She does not have a PCP and has not taken any medication for 5 years now. * On IV hydralazine as needed. Will add on p.o. metoprolol. #UTI: Urinalysis showed evidence of UTI. On IV Rocephin. Await urine cultures and adjust antibiotics as needed. #Bilateral breast mass likely breast cancer with mets to the bone * Chest CT done on admission on account of the chest pain showed multifocal scattered lucent lytic lesions with pathologic fracture of L5 concerning for diffuse metastatic disease * Patient has very high bilateral breast mass tethered to the overlying skin is concerning for malignancy. Patient states she has had these breast mass for about 3 years and has slowly grown. She has never sought any treatment for it . * There is evidence of some peau d'orange on the overlying skin. * Patient's 2 sisters both of breast cancer and her mother of ovarian cancer. There is therefore concern for possible BRCA gene mutation. Patient's daughter present who says she was also diagnosed with a breast lesion but it was nonmalignant. Patient's daughter wondered if she has to undergo genetic testing. Daughter counseled that she needs to follow-up with her primary care doctor and to give a thorough family history of both first and second line relatives having breast and ovarian cancer. This will help for determination to be made about need for BRCA testing. * oncology consulted. general surgery consulted for breast biopsy #CKD stage III: Cr was 1.52 on admission, and now up to 1.6. No baseline CR in EMR. WIll gently hydrate and monitor for any change in Cr #Hyperglycemia: patient's blood glucose was mildly elevated. A1C is 5.8., therefore not a diabetic. Will monitor DVT prophylaxis: Heparin Medications at Discharge Home Medications amlodipine 10 mg tablet 10 mg PO DAILY #30 tabs 07/21/23 cefdinir 300 mg capsule 300 mg PO BID #10 caps 07/21/23 Hospital Course Operations None Procedures 2-D Echocardiogram and - (breast biopsy) Summary of Care Provided Minutes Spent on Discharge: 50 Hospital Course: Patient is an 87-year-old female with a past medical history as outlined was admitted through the ED on 07/19/2023 with a complaint of chest discomfort which started the evening prior. She described it as a shooting pain which radiated across both sides of her chest. She also noted that her blood pressure was markedly elevated at home with a systolic been over 220. She had a history of hypertension at home but had not taken her medications for about 5 years prior to admission. She also complained of hematuria and increased urinary frequency so her daughter brought her into the ED. Hospital course was complicated by bradycardia with heart rate going as low as 38 but came up into the 50s. She also complained of some transient calf pain mainly in her right calf. On admission initial troponin was 112 and trended up slightly but then subsequently trended down. Urinalysis showed evidence of UTI. CT of the abdomen and pelvis showed diffuse mesenteric edema and minimal free fluid within the pelvis with no evidence of bowel obstruction or bowel perforation and showed a diffuse mottled appearance of the visualized spine, pelvis and hips as well as multiple ribs with multifocal scattered lucent lytic lesions suggestive of a very diffuse metastatic disease. She also had a pathologic fracture of L5. She was admitted and managed for chest pain to rule out ACS as well as metastatic malignancy of unclear etiology and hypertensive urgency. Blood pressure improved with administration of IV hydralazine. She was started on IV ceftriaxone. Oncology was consulted. It turned out that patient had a breast lump in each breast which she said she had had for several years but had not sought any treatment for it. The mass had grown bigger and harder and become tethered to the overlying skin. Oncology was consulted and deemed that her skeletal CT findings will likely due to metastatic breast cancer. General surgery was consulted and she had a breast biopsy done on 07/20/2023, results of which were still pending at time of discharge. Patient had a stress test which showed no evidence of ischemia. Cardiology was consulted and per cardiology his symptoms were likely due to her hypertensive urgency. She was started on p.o. amlodipine 10 mg daily and blood pressure improved markedly. She had 2D echo which showed EF of 55 to 60% with moderate LV enlarged left atrium and mild aortic stenosis. Per patient, had 2 sisters have of breast cancer and her mother had also of ovarian cancer. Patient's daughter was counseled that they needed to see her PCP to be referred to a furniture restorer for possible testing for BRCA gene as deemed appropriate. Daughter was agreeable to this. Patient was discharged home on 07/21/2023 on p.o. amlodipine 10 mg daily. She is follow-up with her primary care doctor and is follow-up with oncology on outpatient basis for discussion of the biopsy results. Of note, duplex of the lower extremity done showed a chronic superficial vein thrombosis in the right greater saphenous vein. Deep veins of the right lower extremity were patent and compressible with no evidence of right lower extremity DVT. Patient was therefore not anticoagulated. She was also discharged on p.o. cefdinir 300 mg twice daily to complete treatment for UTI. Patient seen and examined prior to discharge. She felt well and had no complaints. Daughter was by her bedside. Review of systems otherwise negative. Labs and vitals reviewed. Home medication reviewed and reconciled. Physical Exam Const alert, oriented x3 and no apparent distress General Appearance: cooperative HEENT normocephalic, head/scalp atraumatic, hearing grossly normal bilaterally, moist oral mucous membranes and oropharynx normal Mouth: oral and palatal mucosa normal Eyes PERRL and EOMs intact bilaterally Neck no lymphadenopathy and supple Lymph Lymphatic: no lymphadenopathy noted and no lymphedema noted Resp normal respiratory effort, normal air movement and clear to auscultation bilaterally Cardio regular rate, regular rhythm, S1 normal heart sound, S2 normal heart sound and no murmurs GI normal to inspection, nondistended, normoactive bowel sounds and soft to palpation Extremity normal to inspection, full ROM, normal capillary refill, no clubbing, cyanosis or edema and no calf tenderness General Extremity: no tenderness to palpation of joints or extremities Skin Skin Narrative: has superficial venous ulceration over the right inner ankle. Patient has a breast lump in each breast, with overlying skin tethered to the mass. The mass is about 3 to 4 cm in diameter, very hard with inverted nipples. Lesions: lesion noted Neuro oriented x3, CN's II-XII intact bilaterally, moves all extremities, no focal motor deficits, no sensory deficits noted and deep tendon reflexes 2+ bilaterally Sensorium / Orientation: awake Motor Exam: strength 5/5 throughout and general weakness Psych thought process normal, cooperative and affect normal Appearance: appropriate Weight / BMI Weight Weight: 107 lb 5.842 oz Body Mass Index (BMI) 20.9 ABG / Lab / Microbiology Data 07/21/23 05:36 07/21/23 05:36 Laboratory: Laboratory Results - last 24 hr 07/20/23 02:21: Total Protein (PEP) Cancelled, Globulin Cancelled, IgG Cancelled, IgA Cancelled, IgM Cancelled, Immunofixation Screen Cancelled, Albumin (MICHEL) Cancelled, Albumin/Globulin (MICHEL) Cancelled, [id number] MICHEL Cancelled, [id number]-[id number] MICHEL Cancelled, Beta-Globulins (MICHEL) Cancelled, Gamma Globulins (MICHEL) Cancelled, MICHEL M-Jay Cancelled, MICHEL Comments Cancelled, MICHEL Interpretation Cancelled, Free [place] LC, Quant Cancelled, Free Lambda LC, Quant Cancelled, Free [place]/Lambda Ratio Cancelled 07/21/23 05:36: WBC 8.1, RBC 3.27 L, Hgb 9.8 L, Hct 32.2 L, MCV 98.5, MCH 30.0, MCHC 30.4 L, RDW Std Deviation 50.5 H, RDW Coeff of [place] 14.0, Plt Count 181, MPV 9.3, Immature Gran % (Auto) 0.500, Neut % (Auto) 74.7 H, Lymph % (Auto) 16.0 L, [place] % (Auto) 7.2, Eos % (Auto) 1.0, Baso % (Auto) 0.6, Absolute Neuts (auto) 6.1, Absolute Lymphs (auto) 1.30, Nucleated RBC % 0, Sodium 143, Potassium 3.9, Chloride 112 H, Carbon Dioxide 26.0, Anion Gap 5, BUN 16, Creatinine 1.30 H, Estim Creat Clear Calc 21.49, Est GFR (MDRD) Af Amer 50 L, Est GFR (MDRD) Non-Af 41 L, BUN/Creatinine Ratio 12.3, Glucose 126 H, Calcium 8.3 L Radiography Diagnostic Testing: Radiology Impression Echocardiogram 07/19/23 23:15 Interpretation Summary The estimated ejection fraction is 55-60 %. Unable to assess diastolic dysfunction. The left atrium is moderately enlarged. Mild (1+) mitral valve insufficiency. Mild aortic stenosis. Mild (1+) aortic valve insufficiency. 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 Deep veins of the right lower extremity are patent and compressible segmentally. There is no evidence of right lower extremity deep vein thrombosis. Ordering Physician: Samra Samuel Referring Physician: N/A Performed By: Tom Sanabria RVT X-Ray 07/20/23 05:20 IMPRESSION: Unusual bowel gas pattern possibly due to patient''s positioning, Could consider a follow-up CT scan of the abdomen and pelvis for further information and follow-up to the distended bowel loops seen on the prior study. And inhomogeneous bony structures with multifocal erosive lesion suspicious for metastatic disease. Electronically Signed: Dyana Enriquez MD at 7:00 EST Reading Location ID and State: [address] [place] [address] Tel , Service support , D/C Instructions Discharge Diet: Low fat / Low cholesterol Discharge Activity: Return to Normal Activity Weight Bearing Status: Weight bearing as tolerated Call your doctor if you observe: Fever of 101 or Higher, Shortness of breath, Dizziness, Swelling in the ankles, Chest pain and Increased palpitations (irregular heartbeat) Meaningful Use Info Meaningful Use Diagnoses (Choose all that apply): None applicable Discharge Plan Admission Admit Date/Time: 07/19/23 22:27 Primary Reason for Your Visit: hypertensive urgency, metastatic breast cancer Attending Provider: Radha Crouch Primary Care Provider: Care Physician,No Primary Consulting Providers: Nancy Shell; Samra Samuel; Katina Archuleta; Colby Negron Instructions Patient Instructions: BRCA, What Is Breast Cancer? Discharge Orders/Prescriptions Prescriptions: New amlodipine 10 mg Tablet 10 mg PO DAILY Qty: 30 2RF cefdinir 300 mg capsule 300 mg PO BID Qty: 10 0RF Referrals / Follow Up: Kelly Coelho MD [Med Staff - Active Staff] - Within 2 Weeks (call to set up PCP appointment) Colby Negron MD [Med Staff - Active Staff] - Within 2 Weeks Katina Archuleta MD [Med Staff - Active Staff] - Within 2 Weeks Care Physician,No Primary [Primary Care Provider] - NOT,DEFINED [Non-Staff] - Disposition Disposition (needs filled in before D/C Order can be placed): Home, Self Care Charges/Coding Visit Charges Inpatient E&M: 32864 Disch Hosp >30min
[2023-07-21 12:09] VITALS: BP 139/57; PULSE 60; RESP 18; TEMP 37; O2SAT 95
--- NOTE | 2023-07-21 12:44 | CASEMGMT ---
Discharge Planning A list of HH?providers including quality and resource use data and consistent with the patient's preferred geographic region, medical needs, and insurance network was created in [facility] Guide.? This list was provided to the RN MOSHE. Erica Torres, Discharge Planning Asst.
--- NOTE | 2023-07-21 13:04 | CASEMGMT ---
Therapy recommending HHC at discharge. Patient is not established with PCP. List of HHC provided for after getting established with PCP. Patient would benefit from walker at discharge. Scripts received for outpatient therapy and walker. Patient prefers [facility] for walker. DANIELLA MESA sent referral to [facility] via [facility] and arranged for walker to be delivered to room. Patient and daugther had no further questions or concerns at this time.
[2023-07-22 05:07] LABS: CA 27.29 243.2 U/mL (0.0-38.6)
--- NOTE | 2023-07-24 | IMM_PTH ---
PATIENT: JASPER ESPARZA LOC: [facility] U#:[id number] AGE/SX: 87/F ROOM: [facility] RE07/19/[address]: Dr. Radha Crouch MD : [id number] BED: 1 DIS: 07/21/2023 SPEC #: [id number] RECD: 07/25/23 14:27 STATUS: GUNNER REQ #: [id number] SHANI: 07/24/23 00:[address]: Colby Negron DEPT: IMMUNOHISTOCHEMISTRY RECD BY: Galilea Elizalde ENTERED: 07/25/23 14:29 SP TYPE: IMMUNO OTHR DR: MD Dr. Colby Smith MD Dr. Mansour Isckarus, MD Dr. Nana Yaa Koram, MD Dr. Nagapradee Nagajothi, MD No Primary Care Phys Tissues: Left breast, NOS Procedures: CALPONIN-1 (add) CK5-6 (add) CK8 (add) E-CAD (add) HER2 SAMMIE (add) KI-67 (add) P53 (add) MN (add) IN SITU HYBRIDIZATION P40 (add) MOC-31 (add) ER (initial) Comments: @ Ordering doctor for ER edited from to @ by RGOOD at 07/25/23 1631 @ Ordering doctor for CALP. edited from to @ by RGOOD at 07/25/23 1631 @ Ordering doctor for CK5-6. edited from to @ by RGOOD at 07/25/23 1631 @ Ordering doctor for CK8. edited from to @ by RGOOD at 07/25/23 1631 @ Ordering doctor for ECAD. edited from to DR.MBORTZ Fuller by RGOOD at 07/25/23 1631 @ Ordering doctor for HER2. edited from to @ by RGOOD at 07/25/23 1631 @ Ordering doctor for KI67. edited from to DR.MBORTZ Fuller by RGOOD at 07/25/23 1631 @ Ordering doctor for P53. edited from to DR.MBORTZ Fuller by RGOOD at 07/25/23 1631 @ Ordering doctor for MN. edited from to DR.MBORTZ Fuller by RGOOD at 07/25/23 1631 @ Ordering doctor for P40. edited from to DR.MBORTZ Fuller by RGOOD at 07/25/23 1631 @ Ordering doctor for MOC31 edited from to DR.MBORTZ Fuller by RGOOD at 07/25/23 1631 @ Submitting doctor edited from to DR.MBORTZ Fuller by RGOOD at 07/25/23 1631 PHYSICIAN & [place] [id number] SPECIMEN INFORMATION: Tissue Source: Left breast needle core biopsy Clinical Info: Left breast Specimen Number: [id number] CPT code: 43226, 95324 x5, 12515 x3, 08728 x2 METHODOLOGY: Deparaffinized sections of prefer/formalin-fixed tissue or PAP/DQ stained slides are incubated with monoclonal/polyclonal antibodies/oligonucleotide probes. Localization is made via biotin free immunoperoxidase method. Appropriate controls are performed and reacted as expected. Results on target cell population are indicated in the following table: RESULTS: ANTIBODY / CLONE RESULT P53 (DO-7) positive, wild type pattern Ki-67 (30-9) positive, 35% Calponin-1 (XQ444G) negative P40 (BC28) negative E-Cad (ECH-6) negative MOC-31 (4561) positive, dim MORPHOMETRIC ANALYSIS ER (clone 6F11) >95%, strong intensity MN (clone 16/1E2) >95%, moderate to strong intensity Her-2Neu (clone CB11) 1-2+ The prognostic test for HER2 is performed on formalin-fixed paraffin embedded tissue. A 3+ (positive) staining pattern is defined as intense, homogeneous, complete, circumferential membranous staining in >10% of contiguous tumor cells. A similar weak (2+) staining pattern is interpreted as equivocal. YAJAIRA follow-up testing is recommended for all equivocal cases. Positivity/negativity for ER/MN is reported if > or < 1% of the tumor cells are immuno- reactive, respectively. The ASCO/CAP criteria is used for scoring. Reference: Journal of Clinical Oncology, 2013; 31:6971-8525 & 2010; 16:1031-2256. Ischemic time: Less than one hour. Duration of fixation: 72 Hrs; Sample Adequate: Yes. These assays have not been validated on decalcified tissues. Results should be interpreted with caution given the likelihood of false negativity on decalcified specimens or fixation greater than 72 hours. Alternative testing methods (FISH/dualISH for Her2; gene expression for ER) are recommended, if applicable. Please notify the laboratory if additional testing is required. These tests were developed and their performance characteristics determined by [facility]. They may not have been cleared or approved by the U.S. Food and Drug Administration. The FDA has determined that such clearance or approval is not necessary. The above immunohistochemical/dualISH markers are ordered and reviewed by the Pathologist. INTERPRETATION: Left breast mass, needle core biopsy: Invasive lobular carcinoma, nuclear grade I. Positive for estrogen receptors (favorable prognostic indicator). Positive for progesterone receptors (favorable prognostic indicator). Equivocal for overexpression of [id number]. AM:radha 07/26/2023 Case has been reviewed in consultation with Dr. Trujillo who concurs with the above diagnosis. IDC:SJ ADDENDUM ADDENDUM ADDENDUM ADDENDUM ADDENDUM ADDENDUM ADDENDUM ADDENDUM ADDENDUM ADDENDUM ADDENDUM ADDENDUM ADDENDUM ADDENDUM ADDENDUM ADDENDUM ADDENDUM ADDENDUM ADDENDUM ADDENDUM ADDENDUM ADDENDUM 07/28/2023 13:00 ADDENDUM 07/28/2023 13:00 ADDENDUM 07/28/2023 13:00 ADDENDUM 07/28/2023 13:00 ADDENDUM 07/28/2023 13:00 IN SITU HYBRIDIZATION (YAJAIRA) FOR HER2 Interpretation: Not Amplified HER2 : CEP-17 Ratio: 1.08 Average HER2 Signal: 2.0 Average CEP-17 Signal: 1.85 Number of Tumor Cells Scanned: 50 Interpretative Information: The INFORM HER2 Dual YAJAIRA DNA Probe Cocktail assay is performed on formalin-fixed paraffin embedded tissue and determines HER2 gene status by detecting HER2 copies via silver in situ hybridization (SISH) and Chromosome 17 copies via chromogenic red in situ hybridization on tumor cells. A minimum of 20 cells representing > 10% of contiguous and homogeneous invasive tumor cells were analyzed. HER2 gene status is classified as Non-amplified (HER2/Chr17 ratio < 2.0) or Amplified (HER2/Chr17 ratio greater than or equal to 2.0). If the resulting HER2/Chr17 ratio falls within 1.8 - 2.2 (Borderline), retesting by FISH is recommended. Reference: Shaquille AC, Kian DUTTONH, Zakiya DG, et al: Recommendations for Human Epidermal Growth Factor Receptor 2 Testing in Breast Cancer: [place] Society of Clinical Oncology / [employer] [place] Pathologists Clinical Practice Guideline Update. J Clin Oncol 31:2047-8850, 2013. AM:radha 07/28/2023
== END 2023-07-21 14:51 | disposition home or self-care (01) | DRG 598 ==
LOC: ED 22:02 → PCU 22:42
PROVIDERS: Internal Medicine Hematology & Oncology; Admitting Provider Family Medicine; Emergency Provider Emergency Medicine; Visit Provider Student in an Organized Health Care Education/Training Program
DX: C50.812 Malignant neoplasm of overlapping sites of left female breast (principal); C79.51 Secondary malignant neoplasm of bone; M84.58XA Pathological fracture in neoplastic disease, other specified site, initial encounter for fracture; I82.811 Embolism and thrombosis of superficial veins of right lower extremity; N39.0 Urinary tract infection, site not specified; C50.811 Malignant neoplasm of overlapping sites of right female breast; N18.30 Chronic kidney disease, stage 3 unspecified; I12.9 Hypertensive chronic kidney disease with stage 1 through stage 4 chronic kidney disease, or unspecified chronic kidney disease; I16.0 Hypertensive urgency; Z17.0 Estrogen receptor positive status [ER+]; X58.XXXA Exposure to other specified factors, initial encounter; Z80.3 Family history of malignant neoplasm of breast; Z82.49 Family history of ischemic heart disease and other diseases of the circulatory system
CPT/HCPCS: 36415; 71045; 74018; 74176; 78452; 80048; 80053; 80061; 81001; 81002; 82784; 83036; 83735; 83883; 84165; 84484; 85025; 86300; 86334; 88305; 88341; 88342; 88368; 93005; 93017; 93306; 93971; 97162; 99285; A9500; J7030; J7040; A4216; J2405; J2785

== ENCOUNTER 2023-08-16 09:37 | Outpatient (CLI) | payer MEDICARE, SELFPAY ==
--- NOTE | 2023-08-16 09:41 | NM_ITS ---
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 WHOLE BODY 99m Tc MDP RADIONUCLIDE BONE SCINTIGRAPHY COMPARISON: CT of the abdomen-pelvis report 07/19/2023 FINDINGS: Following the intravenous administration of 26.9 mCi of 99m Tc MDP, whole body bone images reveal: 1. Increased radiopharmaceutical concentration is defined in the right proximal humeral metaphysis, the right mid and distal humeral diaphysis, the left mid humeral and distal diaphysis, the right-left proximal femoral diaphysis, the right mid and distal femoral diaphysis, the bilateral proximal tibial metaphysis, the seventh rib posteriorly on the left, the eighth and ninth ribs posteriorly on the right, the right frontal hemicalvarium. 2. Facilitated uptake is noted in the acromioclavicular compartment of the right shoulder, sternoclavicular compartment of the left shoulder, the fifth lumbar vertebra and sacrum, the fifth thoracic vertebra, the eighth-12th thoracic vertebra. 3. The remaining skeletal structures are scintigraphically unremarkable with normal-appearing renal images and urinary bladder activity identified. NM/Bone Scan Whole Body IMPRESSION: 1. 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 Plain film radiography correlation may be of benefit in the appendicular skeleton. 2. Degenerative arthritis is defined in the bilateral shoulders, the thoracic and lumbar spine, the sacrum. Electronically Signed: Josr Jessica DO at 22:08 EST ,
== END 2023-08-16 23:59 | disposition home or self-care (01) ==
LOC: NM 09:41
PROVIDERS: Referring Provider Nurse Practitioner Family; Visit Provider Nurse Practitioner Family
DX: Z85.3 Personal history of malignant neoplasm of breast (principal); Z17.0 Estrogen receptor positive status [ER+]
CPT/HCPCS: 78306; A9503

== ENCOUNTER → 2024-06-27 | Outpatient (CLI) | payer MEDICARE, SELFPAY ==
--- NOTE | 2024-06-27 07:54 | NM_ITS ---
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 WHOLE BODY 99m Tc MDP RADIONUCLIDE BONE SCINTIGRAPHY COMPARISON: Previous whole body bone scintigraphy study dated 08/16/2023 FINDINGS: Following the intravenous administration of 25.9 mCi of 99m Tc MDP, whole body bone images reveal: 1. Increased tracer uptake is currently demonstrated in the right proximal tibial diaphysis, left proximal femoral diaphysis, bilateral Monday 80 mL value G potential Darby K symmetric and located the right proximal humeral metaphysis, the right mid humeral diaphysis. The remaining previously defined foci of metastatic increased tracer uptake are not visualized on the present examination. 2. Increased radiopharmaceutical concentration is demonstrated in the acromioclavicular compartment of the right shoulder, sternoclavicular compartments of both shoulders, the fifth lumbar vertebra posteriorly on the left, the medial tibial compartments of both knees. 3. The remaining skeletal structures are scintigraphically unremarkable with normal-appearing renal images and urinary bladder activity identified. NM/Bone Scan Whole Body IMPRESSION: 1. The increase in tracer uptake redemonstrated in the left proximal femur, right proximal tibia and right humeral metaphysis and diaphysis demonstrates a decrease in osteoblastic turnover on the current examination remains consistent with skeletal metastatic disease. 2. Degenerative arthritis is currently expressed in the bilateral shoulders, the fifth lumbar vertebra and knee articulations bilaterally. 3. There is interim resolution of the prior defined additional skeletal abnormal foci on the current examination. 4. Overall compared to the previous whole body bone scintigraphy study dated 08/16/2023, there is continued demonstration of viable osseous neoplastic disease with a significant improvement and persistently defined abnormalities and resolution of the remaining scintigraphic findings. Electronically Signed: Josr Jessica DO at 8:03 EST ,
== END | disposition home or self-care (01) ==
PROVIDERS: PCP Nurse Practitioner Family; Referring Provider Internal Medicine Hematology & Oncology; Visit Provider Internal Medicine Hematology & Oncology
DX: C50.811 Malignant neoplasm of overlapping sites of right female breast (principal); C77.9 Secondary and unspecified malignant neoplasm of lymph node, unspecified; C79.51 Secondary malignant neoplasm of bone; C50.812 Malignant neoplasm of overlapping sites of left female breast
CPT/HCPCS: 78306; A9503